=== PATIENT | male | born 1995 | race Caucasian/White ===

== ENCOUNTER 2019-11-01 12:11 | Emergency (ER) | payer OTHER, SELFPAY ==
[2019-11-01 12:15] VITALS: BP 140/82; PULSE 77; RESP 12; TEMP 36.7; O2SAT 98
--- NOTE | 2019-11-01 12:39 | ED.SKABFB ---
HPI - Skin/Abscess/Foreign Bdy <MANPREET Gomez - Last Filed: 11/01/19 19:03> General Chief complaint: Skin/Abscess/Foreign Body Stated complaint: abscess on his nose is getting worse Time Seen by Provider: 11/01/19 12:26 History of Present Illness HPI narrative: 24 year old male with a history of Crohn's, presents emergency department for a ?abscess on his nose ?. Patient states he felt some nose irritation approximately 5 days ago, he thought it was a palpable but the redness and swelling continued to spread. He notes some purulent drainage from his nose occasionally. Patient states he has been taking Levaquin for a GI infection, he states he has 4 days left of this medication. He denies any other symptoms such as fevers, chills, nausea, vomiting, diarrhea, chest pain, shortness of breath, or any other concerns. Related Data Home Medications Medication Instructions Recorded Confirmed oxycodone-acetaminophen [Percocet] 2 tab PO Q4HP PRN #0 07/05/17 sulfamethoxazole-trimethoprim 1 tab PO BID #0 07/05/17 Previous Rx's Medication Instructions Recorded sulfamethoxazole-trimethoprim 1 tab PO BID 7 Days #0 tab 09/05/17 doxycycline hyclate 100 mg PO BID 7 Days #14 cap 11/01/19 Review of Systems <MANPREET Gomez - Last Filed: 11/01/19 19:03> Review of Systems Narrative: REVIEW OF SYSTEMS: GENERAL: Denies fever or chills. HENT: Denies head trauma. Reports nose redness and swelling, see HPI. CARDIOVASCULAR: Denies syncope. MUSCULOSKELETAL: Denies weakness, or deformities. INTEGUMENTARY: Complains of nose abscess, see HPI. NEURO: Denies numbness or tingling. Patient History <MANPREET Gomez - Last Filed: 11/01/19 19:03> Medical History Crohn's disease (Acute) Social History Smoking Status: Never smoker Smoking Status: Never smoker Exam <MANPREET Gomez - Last Filed: 11/01/19 19:03> Initial Vital Signs Initial Vital Signs: Vital Signs Temperature 98.1 F 11/01/19 12:15 Pulse Rate 77 11/01/19 12:15 Respiratory Rate 12 11/01/19 12:15 Blood Pressure 140/82 11/01/19 12:15 Pulse Oximetry 98 11/01/19 12:15 PHYSICAL EXAMINATION: GENERAL: Well groomed, alert, and cooperative. Answers questions promptly and appropriately. Vital signs noted. HENT: Normocephalic, atraumatic. There is a 2 cm x 3 cm area of erythema noted to left side of tip of nose which extends into the distal aspect of left Nare. A minute amount of purulent discharge, less than 1 mm expressed from the lateral internal aspect of left nare which correlates with external erythema and tenderness. No fluctuation. RESPIRATORY: Normal respiratory rate, trachea midline, airway patent. No stridor, nasal flaring or accessory muscle use. MUSCULOSKELETAL: Normal gait and coordination. Equal tone and mass bilaterally. EXTREMITIES: CMS intact. Moves all extremities. SKIN: Warm, dry, soft, appropriate color for ethnicity. NEURO: Alert and Oriented X 3. Good coordination. PSYCH: Appropriate affect and mood. <Shar Martínez DO - Last Filed: 11/02/19 07:08> Initial Vital Signs Initial Vital Signs: Vital Signs Temperature 98.1 F 11/01/19 12:15 Pulse Rate 77 11/01/19 12:15 Respiratory Rate 12 11/01/19 12:15 Blood Pressure 140/82 11/01/19 12:15 Pulse Oximetry 98 11/01/19 12:15 Course <MANPREET Gomez - Last Filed: 11/01/19 19:03> Course Course Narrative: Culture was obtained and sent to lab. Orders Ordered: ED Orders 11/01/19 12:37 Wound Culture and Gram Stain Stat Vital Signs Vital signs: Vital Signs - 8 hr 11/01/19 12:15 Temperature 98.1 F Pulse Rate 77 Respiratory Rate 12 Blood Pressure 140/82 Pulse Oximetry 98 <Shar Martínez DO - Last Filed: 11/02/19 07:08> Orders Ordered: ED Orders 11/01/19 12:37 Wound Culture and Gram Stain Stat Vital Signs Vital signs: Vital Signs - 8 hr 11/01/19 12:15 Temperature 98.1 F Pulse Rate 77 Respiratory Rate 12 Blood Pressure 140/82 Pulse Oximetry 98 MDM - Skin/Abscess/Foreign Bdy <Narcisa HutchisonMANPREET - Last Filed: 11/01/19 19:03> Medical Records Attestation: I reviewed the patient's medical records. Lab Data Attestation: I reviewed the patient's lab results. [facility] Narrative Medical decision making narrative: 24-year-old male presents emergency department for redness and an abscess on the tip of left nose. A small amount of purulent drainage noted from his wound, surrounding erythema to tip of nose suggesting cellulitis as well as abscess. Suspect abscess is very small as only a small amount of purulent fluid was expressed, no fluctuation noted, patient reports wound has been draining. 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 I discussed this with patient and he was put on doxycycline for MRSA coverage and due to suspicion of surrounding cellulitis. No suspicion for sepsis due to lack of systemic symptoms such as fever or tachycardia. Return precautions given for new or worsening symptoms. Patient agrees to plan of care verbalized understanding. Discharge Plan Departure Patient Disposition: Home Clinical Impression: Nasal abscess Discharge Date/Time: 11/01/19 13:00 Instructions: DI for Skin Abscess Activity Restrictions/Additional Instructions: Thank you for entrusting me with your care today. As discussed, I have given you an antibiotic to help with infection in your nose. Please take this as directed. I recommend placing warm compresses on the area 3 times a day to help with drainage. Follow-up with your primary care provider in the next 1-2 weeks for further evaluation if symptoms continue. Return emergency department for any new or worsening symptoms such as increasing pain, increased redness, spreading of infection, fevers, or any other concerns. Prescriptions: New doxycycline hyclate 100 mg capsule 100 mg PO BID 7 Days Qty: 14 RF: 0 No Action sulfamethoxazole-trimethoprim 800 MG/160 MG tablet 1 tab PO BID Qty: 0 RF: 0 oxycodone-acetaminophen [Percocet] 5 MG/325 MG tablet 2 tab PO Q4HP PRNQty: 0 RF: 0 sulfamethoxazole-trimethoprim 800 MG/160 MG tablet 1 tab PO BID 7 Days Qty: 0 RF: 0 <Shar Martínez DO - Last Filed: 11/02/19 07:08> Cosign ED Attending Cosignature Attestation: Dr Martínez Co-Sign Statement: I was available for consultation during this patient's emergency department visit. This chart is signed by myself for administrative purposes only. I did not have direct contact with this patient during this visit. They were seen independently by the APC.
== END 2019-11-01 13:00 | disposition home or self-care (01) ==
PROVIDERS: Emergency Provider Nurse Practitioner
DX: J34.0 Abscess, furuncle and carbuncle of nose (principal)
CPT/HCPCS: 87070; 87075; 87077; 87147; 87186; 87205; 99281; 99282

== ENCOUNTER 2019-12-19 17:38 | Emergency (ER) | payer OTHER, SELFPAY ==
[2019-12-19 17:54] VITALS: BP 131/85; PULSE 89; RESP 16; TEMP 36.6; O2SAT 96; BMI 37.6
[2019-12-19 19:47] VITALS: BP 135/86; PULSE 71; RESP 19; O2SAT 98
--- NOTE | 2019-12-19 20:32 | ED.RECABL ---
HPI - Recheck/Abnormal Lab/Rx General Chief Complaint: Recheck/Abnormal Lab/Rx Stated Complaint: UNABLE TO REMOVE PERIANAL ABSCESS DRAINE Time Seen by Provider: 12/19/19 20:32 Source: patient Mode of arrival: Ambulatory Limitations: no limitations History of Present Illness HPI narrative: The patient has Crohn's disease, and a history of perianal abscess. He developed an abscess about 4 5 days ago. An I&D was done 2 days ago [facility]. He is here for wound check and to have the packing pulled. He denies fever or chills. There is no significant purulent or bloody discharge. He is not having significant pain. He has no abdominal discomfort Related Data Home Medications Medication Instructions Recorded Confirmed oxycodone-acetaminophen [Percocet] 2 tab PO Q4HP PRN #0 07/05/17 sulfamethoxazole-trimethoprim 1 tab PO BID #0 07/05/17 Previous Rx's Medication Instructions Recorded sulfamethoxazole-trimethoprim 1 tab PO BID 7 Days #0 tab 09/05/17 Allergies Allergy/AdvReac Type Severity Reaction Status Date / Time acetaminophen [From Vicodin] AdvReac Verified 12/19/19 18:03 hydrocodone [From Vicodin] AdvReac Verified 12/19/19 18:03 Review of Systems Review of Systems ROS Unobtainable: All systems reviewed & are unremarkable except as noted in HPI and below Constitutional Constitutional: Denies chills and Denies fever(s) Gastrointestinal Gastrointestinal: Denies abdominal pain, Denies hematochezia, Denies change in bowel habits, Denies diarrhea, Denies nausea and Denies vomiting Integumentary/Breasts Skin/Breast: Denies rash and Denies wounds Comments: See HPI regarding perianal abscess Patient History Medical History (Updated 12/19/19 @ 20:42 by Xu Christy MD) Crohn's disease (Acute) Social History Smoking Status: Never smoker Smoking Status: Never smoker tobacco type: vaping Substance Use Type: does not use Exam Initial Vital Signs Initial Vital Signs: Vital Signs Temperature 97.9 F 12/19/19 17:54 Pulse Rate 89 12/19/19 17:54 Respiratory Rate 16 12/19/19 17:54 Blood Pressure 131/85 12/19/19 17:54 Pulse Oximetry 96 12/19/19 17:54 GI Palpation: soft and No tender Other: Small healing incision in the perianal area, no packing is in place. There is no purulent discharge. There is minimal bleeding. The wound is healing , with no obvious infection. Course Vital Signs Vital signs: Vital Signs - 8 hr 12/19/19 17:54 12/19/19 19:47 Temperature 97.9 F Pulse Rate 89 71 Respiratory Rate 16 19 Blood Pressure 131/85 135/86 Pulse Oximetry 96 98 Discharge Plan Departure Patient Disposition: Home Clinical Impression: Wound check, abscess Instructions: DI for Anal Abscess Activity Restrictions/Additional Instructions: The area is healing well. I would recommend 2 times daily hot water soaking, sitting in a hot bath would be appropriate. Follow-up with your doctor in approximately 1 week for recheck. Prescriptions: No Action sulfamethoxazole-trimethoprim 800 MG/160 MG tablet 1 tab PO BID Qty: 0 RF: 0 oxycodone-acetaminophen [Percocet] 5 MG/325 MG tablet 2 tab PO Q4HP PRNQty: 0 RF: 0 sulfamethoxazole-trimethoprim 800 MG/160 MG tablet 1 tab PO BID 7 Days Qty: 0 RF: 0
== END 2019-12-19 20:46 | disposition home or self-care (01) ==
PROVIDERS: Emergency Provider Emergency Medicine
DX: Z48.00 Encounter for change or removal of nonsurgical wound dressing (principal); K61.0 Anal abscess
CPT/HCPCS: 99281

== ENCOUNTER 2020-04-04 10:15 | Emergency (ER) | payer OTHER, SELFPAY ==
[2020-04-04] VITALS (9 sets, daily range): BP systolic 107–127; BP diastolic 72–83; PULSE 67–79; RESP 14–18; TEMP 36.1; O2SAT 97–100; BMI 37.6
--- NOTE | 2020-04-04 10:29 | PC.NURSE ---
Addendum entered by Taylor Robb R.N. 04/04/20 10:30: Right AC Original Note: 1 unsuccessful IV attempt made
--- NOTE | 2020-04-04 10:38 | PC.NURSE ---
pt has hx of Crohn's disease
--- NOTE | 2020-04-04 10:39 | ED_ITS ---
HPI - General Adult General Chief complaint: Abdominal Pain Stated complaint: Lower right and Central stomach pain Time Seen by Provider: 04/04/20 10:16 Source: patient Mode of arrival: Ambulatory Limitations: no limitations History of Present Illness HPI narrative: Patient is a 25-year-old male with a history of Crohn's disease here for evaluation of periumbilical right lower quadrant abdominal pain. Patient states that his symptoms started approximately 5 days ago. Shortly after the onset he went to [facility] for evaluation of the pain. He states he went to this facility because this is where his GI doctor is located. He states that he had a CT scan performed at the time which showed ?an enlarged appendix? this was not immediately available for my review. He stated that the decision was to place him on oral antibiotics and not perform surgery given the fact that he is on his immunosuppression medicine because of the Crohn's disease. He was placed on levofloxacin and Flagyl. He has been taking these as directed. He states that his pain has not improved and actually has worsened over the past 12 hours. No vomiting. Came to the emergency department for evaluation Related Data Home Medications Medication Instructions Recorded Confirmed oxycodone-acetaminophen [Percocet] 2 tab PO Q4HP PRN #0 07/05/17 Previous Rx's Medication Instructions Recorded sulfamethoxazole-trimethoprim 1 tab PO BID 7 Days #0 tab 09/05/17 hydrocodone-acetaminophen [[place]] 1 tab PO Q4-6H PRN #7 tab 04/04/20 prednisone 20 mg PO DAILY #26 tab 04/04/20 Allergies Allergy/AdvReac Type Severity Reaction Status Date / Time hydrocodone [From Vicodin] AdvReac Intermediate Verified 04/04/20 10:21 Review of Systems Constitutional Constitutional: Denies chills, Denies fatigue and Denies fever(s) Cardiovascular Cardiovascular: Denies chest pain and Denies dyspnea Respiratory Respiratory: Denies dyspnea Gastrointestinal Gastrointestinal: Reports abdominal pain, Reports constipation, Denies nausea and Denies vomiting Genitourinary Genitourinary: Reports dysuria Genitourinary: Reports dysuria Musculoskeletal Musculoskeletal: Denies arthralgias and Denies myalgias Integumentary/Breasts Skin/Breast: Denies lesions and Denies rash Neurologic Neurologic: Denies behavioral changes Psychiatric Psychiatric: Denies behavioral changes Endocrine Endocrine: Denies fatigue Hematologic/Lymphatic Hematologic/Lymphatic: Denies easy bleeding and Denies easy bruising Allergic/Immunologic Allergic/Immunologic: Denies urticaria Patient History Medical History Crohn's disease (Acute) Social History Smoking Status: Never smoker Smoking Status: Never smoker tobacco type: vaping Substance Use Type: does not use Exam Initial Vital Signs Initial Vital Signs: Vital Signs Temperature 97.0 F L 04/04/20 10:17 Pulse Rate 79 04/04/20 10:17 Respiratory Rate 14 04/04/20 10:17 Blood Pressure 123/83 04/04/20 10:17 Pulse Oximetry 99 04/04/20 10:17 Const General: cooperative and comfortable Limitations: mental status not altered HENMT Head: normal to inspection and normocephalic Resp Effort & Inspection: normal respiratory effort Auscultation: clear to auscultation bilaterally Cardio Rate: regular rate Rhythm: regular rhythm GI Inspection: non-distended Palpation: soft, No firm and tender (Right lower quadrant regarding) Skin Lesions: no lesions Rashes: no rashes Neuro General: patient alert and patient awake Cognition: normal cognition Speech: speech normal Extrem General: normal to inspection and capillary refill normal Psych Appearance: grossly normal and well kempt Course Orders Ordered: ED Orders 04/04/20 10:28 Basic Metabolic Panel Stat Complete Blood Count AUTO DIFF Stat 04/04/20 10:40 CT abdomen pelvis w con Stat Discontinued Medications Acetaminophen (Tylenol) 650 mg PO NOW ONE Stop: 04/04/20 12:41 Last Admin: 04/04/20 12:45 Dose: 650 mg Documented by: KBROTEM Hydromorphone HCl (Dilaudid) 1 mg IV NOW ONE Stop: 04/04/20 11:45 Last Admin: 04/04/20 11:48 Dose: 1 mg Documented by: MMINOR Sodium Chloride (Normal Saline 0.9%) 1,000 mls @ 1,000 mls/hr IV BOLUS ONE Stop: 04/04/20 11:38 Last Infusion: 04/04/20 12:04 Dose: 0 mls/hr Documented by: Admin: 04/04/20 10:47 Dose: 1,000 mls/hr Documented by: MMINOR Morphine Sulfate (Morphine) 4 mg IV NOW ONE Stop: 04/04/20 10:40 Last Admin: 04/04/20 10:49 Dose: 4 mg Documented by: ANTHONY Vital Signs Vital signs: Vital Signs - 8 hr 04/04/20 10:17 04/04/20 10:55 04/04/20 11:00 Temperature 97.0 F L Pulse Rate 79 72 70 Respiratory Rate 14 Blood Pressure 123/83 118/74 118/73 Pulse Oximetry 99 97 98 04/04/20 11:30 04/04/20 12:02 04/04/20 12:03 Temperature Pulse Rate 71 77 75 Respiratory Rate 18 Blood Pressure 121/81 127/78 Pulse Oximetry 100 99 100 04/04/20 12:30 04/04/20 13:00 Temperature Pulse Rate 76 73 Respiratory Rate Blood Pressure 116/72 107/76 Pulse Oximetry 100 98 Medical Decision Making Lab Data Lab results reviewed: Yes I reviewed the patient's lab results. Result diagrams: 04/04/20 10:28 04/04/20 10:28 Labs: Lab Results 04/04/20 04/04/20 Range/Units 10:28 10:28 WBC 7.8 (4.5-11.0) X10^3/uL RBC 5.52 (4.5-5.9) X10^6/uL Hgb 18.3 H (13.5-17.5) g/dL Hct 52.4 (41-53) % MCV 94.9 (80-100) fL MCH 33.2 (26-34) PG MCHC 35.0 (30-36) % RDW 14.2 (11.6-14.8) % Plt Count 189 (150-400) X10^3/uL Neut % (Auto) 74.3 (50-75) % Lymph % (Auto) 18.9 L (25-40) % [place] % (Auto) 5.7 (3-14) % Eos % (Auto) 0.8 L (2-4) % Baso % (Auto) 0.3 (0-2) % Neut # (Auto) 5800 (9583-4069) /uL Lymph # (Auto) 1500 (1880-8259) /uL [place] # (Auto) 400 (0-900) /uL Eos # (Auto) 100 (0-450) /uL Baso # (Auto) 0 (0-100) /uL Sodium 141 (137-145) mmol/L Potassium 4.3 (3.4-5.1) mmol/L Chloride 105 (98-107) mmol/L Carbon Dioxide 30 (22-32) mmol/L BUN 18 (9-20) mg/dL Creatinine 1.05 (0.66-1.25) mg/dL Estimated GFR > 60.0 (>60) mL/min BUN/Creatinine Ratio 17.1 (6-22) Glucose 95 (70-100) mg/dL Calcium 9.5 (8.4-10.2) mg/dL Urine Dip Bedside Urine Glucose Negative Bedside Urine Bilirubin - Negative Bedside Urine Ketone - Negative Urine Specific [place] 1.025 Bedside Urine Occult Blood - Negative Bedside Urine pH 6.5 Bedside Urine Protein - Negative Bedside Urine Urobilinogen - Negative Bedside Urine Nitrite - Negative Bedside Urine Leukocytes - Negative Esterase Point of care testing: Urine Dip Bedside Urine Glucose Negative Bedside Urine Bilirubin - Negative Bedside Urine Ketone - Negative Urine Specific [place] 1.025 Bedside Urine Occult Blood - Negative Bedside Urine pH 6.5 Bedside Urine Protein - Negative Bedside Urine Urobilinogen - Negative Bedside Urine Nitrite - Negative Bedside Urine Leukocytes - Negative Esterase Imaging Data CT scan - abdomen/pelvis: Radiologist's Impression: [place] [address] CT Scan Report Signed Patient: Oz Rivera [facility]#: [id number] : 1995Acct:[id number] Age/Sex: 25 / MDate of Service: 04/04/20 Loc: ED Accession Number: [id number] Procedure: CT abdomen pelvis w con Ordering Provider: Shar Martínez D.O. PROCEDURE: CT ABDOMEN PELVIS W CON INDICATIONS: RLQ pain history of Crohn's TECHNIQUE: After the administration of intravenous contrast, 5 mm thick sections acquired from the diaphragm to the symphysis. 5 mm coronal and sagittal reformats were acquired. For radiation dose reduction, the following was used: automated exposure control, adjustment of mA and/or kV according to patient size. COMPARISON: None. FINDINGS: Image quality: Excellent. ABDOMEN: Lung bases: Lung bases are clear. Heart size is normal. Solid organs: Liver is normal in size and enhancement. Gallbladder is distended and shows no gross abnormality. Biliary system is non dilated. Pancreas enhances normally. Spleen is normal in size and enhancement. No adrenal nodules. Kidneys demonstrate normal size and enhancement, without hydronephrosis. Peritoneum and bowel: The is no evidence of bowel obstruction. No gross gastric or small bowel wall thickening. There is suggestion of mild wall thickening involving distal descending colon and sigmoid colon and mild pericolonic fat stranding concerning for infectious inflammatory colitis. Appendix is visualized in right lower quadrant and is within normal limits. No abscess collection. No free fluid or free air. Nodes and vessels: No retroperitoneal or mesenteric adenopathy by size cri teria. Aorta and inferior vena cava are normal in size. Miscellaneous: No ventral hernias. PELVIS: Genitourinary: Bladder wall thickness is normal. Miscellaneous: No inguinal hernias or adenopathy. Bones: No suspicious bony lesions. No vertebral body compression fractures. IMPRESSION: 1. Mild distal descending colon and sigmoid colon wall thickening and edema with mild pericolonic fat stranding concerning for infectious or inflammatory colitis. No abscess collection is seen. 2. Normal appendix. No bowel obstruction. No free fluid or free air. Dictated by: Cesario Faustin M.D. on 04/04/2020 at 11:19 Approved by: Cesario Faustin M.D. on 04/04/2020 at 11:21 [facility] Narrative Medical decision making narrative: Patient is afebrile. Does not have a leukocytosis. CT scan in this emergency department shows a descending and sigmoid colon wall thickening without signs of abscess. He has a normal tennille endix on the CT scan. Is currently on Cipro and Flagyl. I did discuss the case with the patient's GI doctor who is Dr. Benson at [facility] who stated that the patient has been having abdominal pain recently. Appears that he has been presenting a different emergency departments and having relatively unremarkable workups. He recommended starting the patient on prednisone. Also recommending the patient following up with his office. I discussed all this with the patient. He expressed understanding and agreement. Discharge Plan Departure Patient Disposition: Home Clinical Impression: Colitis Instructions: DI for Colitis Activity Restrictions/Additional Instructions: I did discuss your case today with your GI provider at [facility]. He and I both recommend that you continue with the antibiotics (Levaquin/levofloxacin and Flagyl/metronidazole) until these antibiotics are done. He also recommend starting you on prednisone. You were given a prescription for this. He also would like you to contact his office for follow-up. Return to emergency department for any new or worsening symptoms Prescriptions: New hydrocodone-acetaminophen [[place]] 5-325 mg tablet 1 tab PO Q4-6H PRN (Reason: pain) Qty: 7 RF: 0 prednisone 20 mg tablet 20 mg PO DAILY Qty: 26 RF: 0 No Action oxycodone-acetaminophen [Percocet] 5 MG/325 MG tablet 2 tab PO Q4HP PRNQty: 0 RF: 0 sulfamethoxazole-trimethoprim 800 MG/160 MG tablet 1 tab PO BID 7 Days Qty: 0 RF: 0
[2020-04-04] MEDS: SODIUM CHLORIDE 0.9% 1,000 ML 1000 ML IV (10:47)
[2020-04-04 10:49] LABS: Add Manual Diff / Slide Review NO; Basophils Absolute Auto 0 /uL (0-100); Basophils Percent Auto 0.3 % (0-2); Eosinophils Absolute Auto 100 /uL (0-450); Eosinophils Percent Auto 0.8 % (2-4); Hematocrit 52.4 % (41-53); Hemoglobin 18.3 g/dL (13.5-17.5); Lymphocytes Absolute Auto 1500 /uL (1100-4500); Lymphocytes Percent Auto 18.9 % (25-40); Mean Corpuscular Hemoglobin 33.2 PG (26-34); Mean Corpuscular Volume 94.9 fL (80-100); Monocytes Absolute Auto 400 /uL (0-900); Monocytes Percent Auto 5.7 % (3-14); Neutrophils Absolute Auto 5800 /uL (1500-7000); Neutrophils Percent Auto 74.3 % (50-75); Platelet Count 189 X10^3/uL (150-400); Red Blood Cell Count 5.52 X10^6/uL (4.5-5.9); Red Cell Distribution Width 14.2 % (11.6-14.8); White Blood Cell Count 7.8 X10^3/uL (4.5-11.0)
[2020-04-04] MEDS: MORPHINE 4 MG/ML INJ IV (10:49)
[2020-04-04 10:53] LABS: BUN Creatinine Ratio 17.1 (6-22); Blood Urea Nitrogen 18 mg/dL (9-20); Calcium 9.5 mg/dL (8.4-10.2); Carbon Dioxide 30 mmol/L (22-32); Chloride 105 mmol/L (98-107); Estimated Glomerular Filt Rate > 60.0 mL/min (>60); Glucose 95 mg/dL (70-100); HEMOLYSIS 40 (0-50); Potassium 4.3 mmol/L (3.4-5.1); Sodium 141 mmol/L (137-145)
[2020-04-04] MEDS: HYDROMORPHONE 1 MG INJ IV (11:48)
[2020-04-04] MEDS: ACETAMINOPHEN 325 MG TABLET 650 MG PO (12:45)
[2020-04-04] MEDS: HYDROMORPHONE 0.5 MG INJ IV (13:37)
== END 2020-04-04 13:57 | disposition home or self-care (01) ==
PROVIDERS: Emergency Provider Emergency Medicine; Referring Provider Emergency Medicine
DX: K52.9 Noninfective gastroenteritis and colitis, unspecified (principal)
CPT/HCPCS: 36415; 74177; 80048; 81003; 85025; 96361; 96374; 96375; 96376; 99284; J1170; J2270; Q9967

== ENCOUNTER 2020-07-04 12:56 | Emergency (ER) | payer OTHER, SELFPAY ==
[2020-07-04 13:04] VITALS: BP 155/77; PULSE 97; RESP 22; TEMP 36.8; O2SAT 97
--- NOTE | 2020-07-04 13:04 | DI.CT.S_ITS ---
PROCEDURE: CT ABDOMEN PELVIS W CON INDICATIONS: Generalized abdominal pain TECHNIQUE: After the administration of intravenous contrast, 5 mm thick sections acquired from the diaphragm to the symphysis. 5 mm coronal and sagittal reformats were acquired. For radiation dose reduction, the following was used: automated exposure control, adjustment of mA and/or kV according to patient size. COMPARISON: [facility], CT, CT ABDOMEN PELVIS W CON, 04/04/2020, 11:48. FINDINGS: Image quality: Excellent. ABDOMEN: Lung bases: Lung bases are clear. Heart size is normal. Solid organs: Liver is normal in size and enhancement. Gallbladder is contracted, but within normal limits. Biliary system is non dilated. Pancreas enhances normally. Spleen is normal in size and enhancement. No adrenal nodules. Kidneys demonstrate normal size and enhancement, without hydronephrosis. Peritoneum and bowel: Bowel loops demonstrate normal caliber. Mild circumferential wall thickening involving the distal left colon and sigmoid colon which could be due to underdistention versus mild colitis. No free fluid or air. Appendix is normal. Nodes and vessels: No retroperitoneal or mesenteric adenopathy by size criteria. Aorta and inferior vena cava are normal in size. Miscellaneous: No ventral hernias. PELVIS: Genitourinary: Bladder wall thickness is normal. Miscellaneous: No inguinal hernias or adenopathy. Bones: No suspicious bony lesions. No vertebral body compression fractures. IMPRESSION: 1. Mild circumferential wall thickening involving the distal left colon and sigmoid colon which could be due to underdistention versus mild colitis. 2. No free fluid or free air. 3. No dilated loops of bowel. 4. Appendix is normal. Dictated by: Varsha Tasi MD, PhD on 07/04/2020 at 13:07 Approved by: Varsha Tsai MD, PhD on 07/04/2020 at 13:12
--- NOTE | 2020-07-04 13:08 | ED_ITS ---
HPI - General Adult General Chief complaint: Abdominal Pain Stated complaint: severe abd pain/hematuria/constipation x4 wks Time Seen by Provider: 07/04/20 13:03 Source: patient Mode of arrival: Ambulatory Limitations: no limitations History of Present Illness HPI narrative: Patient is a 25-year-old male. History of Crohn's disease. Is on Remicade. Sees a GI doctor at [facility]. Last colonoscopy was within the past 60 days. States he is here for abdominal pain, blood in his stool. States that he has not had a bowel movement in the past 48 hours (not 4 weeks as stated in the complaint) he was seen at an outside emergency department over the weekend for the same symptoms. He states that he had a CT scan performed and was told that it was unremarkable though his symptoms have worsened since then. He states he does not know if they talk with his GI provider that time. He was not placed on any prednisone. He has not had any fevers. He was told that he had some blood in his urine. Related Data Home Medications Medication Instructions Recorded Confirmed bupropion HCl 300 mg PO DAILY 07/04/20 07/04/20 dextroamphetamine-amphetamine 25 mg PO QAM 07/04/20 07/04/20 gabapentin 400 mg PO TID 07/04/20 07/04/20 lamotrigine 200 mg PO DAILY 07/04/20 07/04/20 oxycodone 5 mg PO Q6HR PRN 07/04/20 07/04/20 Previous Rx's Medication Instructions Recorded ondansetron 4 mg PO Q6H PRN #14 tab 07/04/20 Allergies Allergy/AdvReac Type Severity Reaction Status Date / Time hydrocodone [From Vicodin] AdvReac Intermediate Verified 07/04/20 13:51 Review of Systems Constitutional Constitutional: Denies fever(s) Cardiovascular Cardiovascular: Denies chest pain and Denies dyspnea Respiratory Respiratory: Denies dyspnea Gastrointestinal Gastrointestinal: Reports abdominal pain, Denies change in bowel habits, Reports nausea and Denies vomiting Genitourinary Genitourinary: Denies dysuria Genitourinary: Denies dysuria Musculoskeletal Musculoskeletal: Denies arthralgias and Denies myalgias Integumentary/Breasts Skin/Breast: Denies rash Neurologic Neurologic: Denies behavioral changes Psychiatric Psychiatric: Denies behavioral changes Hematologic/Lymphatic Hematologic/Lymphatic: Denies easy bleeding and Denies easy bruising Allergic/Immunologic Allergic/Immunologic: Denies urticaria Patient History Medical History (Updated 07/04/20 @ 16:17 by Shar Martínez DO) Crohn's disease Social History Smoking Status: Never smoker Smoking Status: Never smoker tobacco type: vaping Substance Use Type: does not use Exam Initial Vital Signs Initial Vital Signs: Vital Signs Temperature 98.3 F 07/04/20 13:04 Pulse Rate 97 H 07/04/20 13:04 Respiratory Rate 22 07/04/20 13:04 Blood Pressure 155/77 H 07/04/20 13:04 Pulse Oximetry 97 07/04/20 13:04 Const General: cooperative and comfortable Resp Effort & Inspection: normal respiratory effort Auscultation: clear to auscultation bilaterally Cardio Rate: regular rate Rhythm: regular rhythm GI Inspection: non-distended Palpation: soft and tender (Left-sided tenderness) Skin Lesions: no lesions Rashes: no rashes Neuro General: patient alert and patient awake Cognition: normal cognition Speech: speech normal Extrem General: capillary refill normal Psych Appearance: grossly normal and well kempt Course Orders Ordered: ED Orders 07/04/20 13:04 CT abdomen pelvis w con Stat 07/04/20 13:22 Complete Blood Count AUTO DIFF Stat Comprehensive Metabolic Panel Stat Lipase Stat Discontinued Medications Sodium Chloride (Normal Saline 0.9%) 1,000 mls @ 1,000 mls/hr IV BOLUS ONE Stop: 07/04/20 14:03 Last Infusion: 07/04/20 14:48 Dose: 0 mls/hr Documented by: Admin: 07/04/20 13:23 Dose: 1,000 mls/hr Documented by: EUN Ketorolac Tromethamine (Ketorolac 60 Mg/2 Ml Vial) 30 mg IV NOW ONE Stop: 07/04/20 14:42 Last Admin: 07/04/20 15:03 Dose: 30 mg Documented by: EUN Ondansetron HCl (Ondansetron 4 Mg/2 Ml Inj) 4 mg IV NOW ONE Stop: 07/04/20 14:19 Last Admin: 07/04/20 14:20 Dose: 4 mg Documented by: EUN Vital Signs Vital signs: Vital Signs - 8 hr 07/04/20 13:04 07/04/20 14:48 Temperature 98.3 F Pulse Rate 97 H 70 Respiratory Rate 22 14 Blood Pressure 155/77 H 137/76 Pulse Oximetry 97 99 Medical Decision Making Lab Data Lab results reviewed: Yes I reviewed the patient's lab results. Result diagrams: 07/04/20 13:22 07/04/20 13:22 Labs: Lab Results 07/04/20 07/04/20 Range/Units 13:22 13:22 WBC 7.4 (4.5-11.0) X10^3/uL RBC 4.92 (4.5-5.9) X10^6/uL Hgb 15.9 (13.5-17.5) g/dL Hct 46.5 (41-53) % MCV 94.5 (80-100) fL MCH 32.4 (26-34) PG MCHC 34.2 (30-36) % RDW 12.6 (11.6-14.8) % Plt Count 177 (150-400) X10^3/uL Neut % (Auto) 71.6 (50-75) % Lymph % (Auto) 21.6 L (25-40) % [place] % (Auto) 5.5 (3-14) % Eos % (Auto) 0.6 L (2-4) % Baso % (Auto) 0.7 (0-2) % Neut # (Auto) 5300 (2740-9188) /uL Lymph # (Auto) 1600 (1451-3124) /uL [place] # (Auto) 400 (0-900) /uL Eos # (Auto) 0 (0-450) /uL Baso # (Auto) 0 (0-100) /uL Sodium 139 (137-145) mmol/L Potassium 3.9 (3.4-5.1) mmol/L Chloride 107 (98-107) mmol/L Carbon Dioxide 28 (22-32) mmol/L BUN 14 (9-20) mg/dL Creatinine 1.02 (0.66-1.25) mg/dL Estimated GFR > 60.0 (>60) mL/min BUN/Creatinine Ratio 13.7 (6-22) Glucose 114 H (70-100) mg/dL Calcium 9.2 (8.4-10.2) mg/dL Total Bilirubin 0.4 (0.2-1.3) mg/dL AST 28 (17-59) IU/L ALT 37 (<50) IU/L Alkaline Phosphatase 52 (38-126) U/L Total Protein 7.2 (6.3-8.2) g/dL Albumin 4.5 (3.5-5.0) g/dL Globulin 2.7 (1.7-4.1) g/dL Albumin/Globulin Ratio 1.7 (1.0-2.8) Lipase 41 (23-300) U/L Urine Dip Bedside Urine Glucose Negative Bedside Urine Bilirubin - Negative Bedside Urine Ketone - Negative Urine Specific [place] 1.01 Bedside Urine Occult Blood - Negative Bedside Urine pH 7.5 Bedside Urine Protein - Negative Bedside Urine Urobilinogen - Negative Bedside Urine Nitrite - Negative Bedside Urine Leukocytes - Negative Esterase Point of care testing: Urine Dip Bedside Urine Glucose Negative Bedside Urine Bilirubin - Negative Bedside Urine Ketone - Negative Urine Specific [place] 1.01 Bedside Urine Occult Blood - Negative Bedside Urine pH 7.5 Bedside Urine Protein - Negative Bedside Urine Urobilinogen - Negative Bedside Urine Nitrite - Negative Bedside Urine Leukocytes - Negative Esterase Imaging Data CT scan - abdomen/pelvis: Radiologist's Impression: [address] [id number] Scan ReportSigned Patient: Oz Rivera [facility]#: [id number]: 1995Acct:[id number]/Sex: 25 / MDate of Service: 07/04/20Loc: EDAccession Number: [id number] Procedure: CT abdomen pelvis w con Ordering Provider: Shar Martínez D.O. PROCEDURE: CT ABDOMEN PELVIS W CON INDICATIONS: Generalized abdominal pain TECHNIQUE: After the administration of intravenous contrast, 5 mm thick sections acquired from the diaphragm to the symphysis. 5 mm coronal and sagittal reformats were acquired. For radiation dose reduction, the following was used: automated exposure control, adjustment of mA and/or kV according to patient size. COMPARISON: [facility], CT, CT ABDOMEN PELVIS W CON, 04/04/2020, 11:48. FINDINGS: Image quality: Excellent. ABDOMEN: Lung bases: Lung bases are clear. Heart size is normal. Solid organs: Liver is normal in size and enhancement. Gallbladder is co ntracted, but within normal limits. Biliary system is non dilated. Pancreas enhances normally. Spleen is normal in size and enhancement. No adrenal nodules. Kidneys demonstrate normal size and enhancement, without hydronephrosis. Peritoneum and bowel: Bowel loops demonstrate normal caliber. Mild circumferential wall thickening involving the distal left colon and sigmoid colon which could be due to underdistention versus mild colitis. No free fluid or air. Appendix is normal. Nodes and vessels: No retroperitoneal or mesenteric adenopathy by size criteria. Aorta and inferior vena cava are normal in size. Miscellaneous: No ventral hernias. PELVIS: Genitourinary: Bladder wall thickness is normal. Miscellaneous: No inguinal hernias or adenopathy. Bones: No suspicious bony lesions. No vertebral body compression fractures. IMPRESSION: 1. Mild circumferential wall thickening involving the distal left colon and sigmoid colon which could be due to underdistention versus mild colitis. 2. No free fluid or free air. 3. No dilated loops of bowel. 4. Appendix is normal. Dictated by: Varsha Tsai MD, PhD on 07/04/2020 at 13:07 Approved by: Varsha Tsai MD, PhD on 07/04/2020 at 13:12 [facility] Narrative Medical decision making narrative: Patient has unremarkable labs. CT scan concerning for distal colitis. I did discuss the case with GI head region you edna who did not recommend changing any of his medications were starting him on steroids. He has a benign abdominal exam. No indication for surgical intervention. No indication for antibiotics. Will send with nausea medication. He was given return precautions. He expressed understanding and agreement. Discharge Plan Departure Patient Disposition: Home Clinical Impression: Colitis Instructions: DI for Colitis Activity Restrictions/Additional Instructions: Recommend continuing all of your medications as directed. Contact your primary provider and also your GI provider for a follow-up. Return to the emergency department for any new or worsening symptoms Prescriptions: New ondansetron 4 mg tablet,disintegrating 4 mg PO Q6H PRN (Reason: nausea and vomiting) Qty: 14 RF: 0 No Action lamotrigine 200 mg tablet 200 mg PO DAILY RF: 0 gabapentin 400 mg capsule 400 mg PO TID RF: 0 oxycodone 5 mg tablet 5 mg PO Q6HR PRN (Reason: Pain (Scale Score 7-10)) RF: 0 dextroamphetamine-amphetamine 25 mg capsule,extended release 24hr 25 mg PO QAM RF: 0 bupropion HCl 300 mg tablet extended release 24 hr 300 mg PO DAILY RF: 0
[2020-07-04] MEDS: SODIUM CHLORIDE 0.9% 1,000 ML 1000 ML IV (13:23)
[2020-07-04 13:28] LABS: Add Manual Diff / Slide Review NO; Basophils Absolute Auto 0 /uL (0-100); Basophils Percent Auto 0.7 % (0-2); Eosinophils Absolute Auto 0 /uL (0-450); Eosinophils Percent Auto 0.6 % (2-4); Hematocrit 46.5 % (41-53); Hemoglobin 15.9 g/dL (13.5-17.5); Lymphocytes Absolute Auto 1600 /uL (1100-4500); Lymphocytes Percent Auto 21.6 % (25-40); Mean Corpuscular HGB Conc 34.2 % (30-36); Mean Corpuscular Hemoglobin 32.4 PG (26-34); Mean Corpuscular Volume 94.5 fL (80-100); Monocytes Absolute Auto 400 /uL (0-900); Monocytes Percent Auto 5.5 % (3-14); Neutrophils Absolute Auto 5300 /uL (1500-7000); Neutrophils Percent Auto 71.6 % (50-75); Platelet Count 177 X10^3/uL (150-400); Red Blood Cell Count 4.92 X10^6/uL (4.5-5.9); Red Cell Distribution Width 12.6 % (11.6-14.8); White Blood Cell Count 7.4 X10^3/uL (4.5-11.0)
[2020-07-04 13:44] LABS: Alanine Aminotransferase 37 IU/L (<50); Albumin 4.5 g/dL (3.5-5.0); Albumin Globulin Ratio 1.7 (1.0-2.8); Alkaline Phosphatase 52 U/L (38-126); Aspartate Aminotransferase 28 IU/L (17-59); BUN Creatinine Ratio 13.7 (6-22); Bilirubin Total 0.4 mg/dL (0.2-1.3); Blood Urea Nitrogen 14 mg/dL (9-20); Calcium 9.2 mg/dL (8.4-10.2); Carbon Dioxide 28 mmol/L (22-32); Chloride 107 mmol/L (98-107); Estimated Glomerular Filt Rate > 60.0 mL/min (>60); Globulin 2.7 g/dL (1.7-4.1); Glucose 114 mg/dL (70-100); HEMOLYSIS 23 (0-50); Lipase 41 U/L (23-300); Potassium 3.9 mmol/L (3.4-5.1); Sodium 139 mmol/L (137-145); Total Protein 7.2 g/dL (6.3-8.2)
[2020-07-04] MEDS: ONDANSETRON 4 MG/2 ML INJ IV (14:20)
[2020-07-04 14:48] VITALS: BP 137/76; PULSE 70; RESP 14; O2SAT 99
[2020-07-04] MEDS: KETOROLAC 60 MG/2 ML VIAL 30 MG IV (15:03)
== END 2020-07-04 16:24 | disposition home or self-care (01) ==
PROVIDERS: Emergency Provider Emergency Medicine
DX: K52.9 Noninfective gastroenteritis and colitis, unspecified (principal); K92.1 Melena; Z87.19 Personal history of other diseases of the digestive system; R11.0 Nausea
CPT/HCPCS: 36415; 74177; 80053; 81003; 83690; 85025; 96361; 96374; 96375; 99283; 99284; J1885; J2405; Q9967

== ENCOUNTER 2020-07-24 01:50 | Emergency (ER) | payer OTHER, SELFPAY ==
[2020-07-24 02:02] VITALS: BP 164/91; PULSE 83; RESP 20; TEMP 36.6; O2SAT 98; BMI 36.3
[2020-07-24 02:17] LABS: RBC Urine None Seen (0-5/HPF); WBC Urine None Seen (0-5/HPF)
[2020-07-24 02:19] LABS: Appearance Urine UA CLOUDY; Bilirubin Urine UA NEGATIVE (NEGATIVE); Color Urine UA YELLOW; Glucose Urine UA NEGATIVE (Negative); Ketones Urine UA NEGATIVE (NEGATIVE); Leukocyte Esterase Urine UA NEGATIVE (NEGATIVE); Nitrite Urine UA NEGATIVE (Negative); Occult Blood Urine UA TRACE-LYSED (Negative); Protein Urine UA NEGATIVE (Negative); Specific Gravity Urine UA 1.015 (1.000-1.035); Urobilinogen Urine UA 0.2 E.U./dL (0.2)
--- NOTE | 2020-07-24 02:22 | ED_ITS ---
HPI - General Adult General Chief complaint: Abdominal Pain Stated complaint: body aches, nausea headache sob chills Time Seen by Provider: 07/24/20 01:59 Source: patient Mode of arrival: Ambulatory History of Present Illness HPI narrative: 25-year-old gentleman with a history of Crohn's disease, currently on Remicade and followed by a GI at [facility] with recent CT scan June of 2020 and colonoscopy in April of 2021. He had been seen in June complaining of increasing abdominal pain and blood in his stools. He has noticed that that has continued and today is having significantly more bleeding and describes a purple color blood that he has never noticed before with his Crohn's disease. He describes overall aches and chills, dizziness when he stands up and general malaise. He denies specific fevers, cough, vomiting, headaches, rashes, arthralgias or skin changes. He denies any chest pain cough or dyspnea. Related Data Home Medications Medication Instructions Recorded Confirmed bupropion HCl 300 mg PO DAILY 07/04/20 07/04/20 dextroamphetamine-amphetamine 25 mg PO QAM 07/04/20 07/04/20 gabapentin 400 mg PO TID 07/04/20 07/04/20 lamotrigine 200 mg PO DAILY 07/04/20 07/04/20 oxycodone 5 mg PO Q6HR PRN 07/04/20 07/04/20 Previous Rx's Medication Instructions Recorded ondansetron 4 mg PO Q6H PRN #14 tab 07/04/20 oxycodone 5 mg PO Q6H PRN #14 tab 07/24/20 Allergies Allergy/AdvReac Type Severity Reaction Status Date / Time hydrocodone [From Vicodin] AdvReac Intermediate Verified 07/04/20 13:51 Review of Systems Review of Systems Narrative: Remainder of review of systems including constitutional, ENT, cardiovascular, respiratory, GI, , musculoskeletal, skin, neurologic and psychiatric systems reviewed and are unremarkable except as noted in HPI. Patient History Medical History (Updated 07/24/20 @ 04:40 by Verona Ochoa MD) ADHD Anxiety Crohn's disease Depression Social History Smoking Status: Never smoker Smoking Status: Never smoker tobacco type: vaping Substance Use Type: does not use Exam Narrative Exam Narrative: General: Healthy appearing, in no acute distress. Able to give a complete and coherent history. Well-nourished well-developed HEENT: Moist mucous membranes, normal sclera with reactive pupils, Neck: No JVD, supple Respiratory: Lungs are clear to auscultation, no wheezing no rales no rhonchi. Full and symmetrical air movement Cardiac: Regular rate and rhythm no murmurs no bruits Abdomen: Soft, mild diffuse tenderness without rebound or guarding, good bowel tones, no flank pain Skin: Warm and dry, no rashes Neurologic: Grossly neurologically intact with no obvious asymmetries or abnormalities Extremities: No trauma, well perfused Psych: Cooperative, appropriate insight and affect Initial Vital Signs Initial Vital Signs: Vital Signs Temperature 97.8 F 07/24/20 02:02 Pulse Rate 83 07/24/20 02:02 Respiratory Rate 20 07/24/20 02:02 Blood Pressure 164/91 H 07/24/20 02:02 Pulse Oximetry 98 07/24/20 02:02 Course Orders Ordered: ED Orders 07/24/20 02:10 Urinalysis and Microscopic Stat 07/24/20 02:14 EKG-12 Lead Stat 07/24/20 02:30 C-Reactive Protein Quant Stat Complete Blood Count AUTO DIFF Stat Comprehensive Metabolic Panel Stat Erythrocyte Sedimentation Rate Stat Lipase Stat Partial Thromboplastin Time Stat Prothrombin Time INR Stat Type and Screen Stat 07/24/20 02:35 COVID19 Stat Discontinued Medications Hydromorphone HCl (Hydromorphone 1 Mg Inj) 1 mg IV NOW ONE Stop: 07/24/20 02:22 Last Admin: 07/24/20 02:40 Dose: 1 mg Documented by: MAYI Sodium Chloride (Normal Saline 0.9%) 1,000 mls @ 1,000 mls/hr IV BOLUS ONE Stop: 07/24/20 03:20 Last Infusion: 07/24/20 04:35 Dose: 0 mls/hr Documented by: Admin: 07/24/20 02:40 Dose: 1,000 mls/hr Documented by: MAYI Vital Signs Vital signs: Vital Signs - 8 hr 07/24/20 02:02 07/24/20 05:22 Temperature 97.8 F 97.7 F Pulse Rate 83 80 Respiratory Rate 20 16 Blood Pressure 164/91 H 138/68 Pulse Oximetry 98 100 Medical Decision Making Medical Records Medical records reviewed: Yes I reviewed the patient's medical records. Lab Data Lab results reviewed: Yes I reviewed the patient's lab results. Result diagrams: 07/24/20 02:30 07/24/20 02:30 Labs: Lab Results 07/24/20 07/24/20 07/24/20 Range/Units 02:10 02:30 02:30 WBC 12.5 H (4.5-11.0) X10^3/uL RBC 5.10 (4.5-5.9) X10^6/uL Hgb 16.1 (13.5-17.5) g/dL Hct 47.9 (41-53) % MCV 93.9 (80-100) fL MCH 31.6 (26-34) PG MCHC 33.7 (30-36) % RDW 12.4 (11.6-14.8) % Plt Count 179 (150-400) X10^3/uL Neut % (Auto) 67.4 (50-75) % Lymph % (Auto) 23.9 L (25-40) % [place] % (Auto) 7.3 (3-14) % Eos % (Auto) 1.0 L (2-4) % Baso % (Auto) 0.4 (0-2) % Neut # (Auto) 8400 H (4558-5916) /uL Lymph # (Auto) 3000 (4284-1275) /uL [place] # (Auto) 900 (0-900) /uL Eos # (Auto) 100 (0-450) /uL Baso # (Auto) 100 (0-100) /uL ESR (0-15) MM/HR PT 13.3 H (10.1-12.7) SECONDS INR 1.2 (0.9-1.3) APTT 34 (26.4-36.2) SECONDS Sodium (137-145) mmol/L Potassium (3.4-5.1) mmol/L Chloride (98-107) mmol/L Carbon Dioxide (22-32) mmol/L BUN (9-20) mg/dL Creatinine (0.66-1.25) mg/dL Estimated GFR (>60) mL/min BUN/Creatinine Ratio (6-22) Glucose (70-100) mg/dL Calcium (8.4-10.2) mg/dL Total Bilirubin (0.2-1.3) mg/dL AST (17-59) IU/L ALT (<50) IU/L Alkaline Phosphatase (38-126) U/L C-Reactive Protein (<1.0) mg/dL Total Protein (6.3-8.2) g/dL Albumin (3.5-5.0) g/dL Globulin (1.7-4.1) g/dL Albumin/Globulin Ratio (1.0-2.8) Lipase (23-300) U/L Urine Color Yellow Urine Appearance Cloudy Urine pH 7.0 (4.5-8.0) Ur Specific [place] 1.015 (1.000-1.035) Urine Protein Negative (Negative) Urine Glucose (UA) Negative (Negative) g/dL Urine Ketones Negative (NEGATIVE) Urine Occult Blood Trace-lysed (Negative) Urine Nitrate Negative (Negative) Urine Bilirubin Negative (NEGATIVE) Urine Urobilinogen 0.2 (0.2) E.U./dL Ur Leukocyte Esterase Negative (NEGATIVE) Urine RBC None seen (0-5/HPF) Urine WBC None seen (0-5/HPF) Ur Squamous Epith Cells 0-1 /hpf (0-5/HPF) Amorphous Sediment 2+ Urine Bacteria Occasional (0-1) (None) Ur Culture Indicated? Cult not indicated SARS-CoV-2 (PCR) (Negative) Blood Type Antibody Screen 07/24/20 07/24/20 07/24/20 Range/Units 02:30 02:30 02:30 WBC (4.5-11.0) X10^3/uL RBC (4.5-5.9) X10^6/uL Hgb (13.5-17.5) g/dL Hct (41-53) % MCV (80-100) fL MCH (26-34) PG MCHC (30-36) % RDW (11.6-14.8) % Plt Count (150-400) X10^3/uL Neut % (Auto) (50-75) % Lymph % (Auto) (25-40) % [place] % (Auto) (3-14) % Eos % (Auto) (2-4) % Baso % (Auto) (0-2) % Neut # (Auto) (7118-1566) /uL Lymph # (Auto) (5128-4809) /uL [place] # (Auto) (0-900) /uL Eos # (Auto) (0-450) /uL Baso # (Auto) (0-100) /uL ESR 1 (0-15) MM/HR PT (10.1-12.7) SECONDS INR (0.9-1.3) APTT (26.4-36.2) SECONDS Sodium 140 (137-145) mmol/L Potassium 3.8 (3.4-5.1) mmol/L Chloride 108 H (98-107) mmol/L Carbon Dioxide 27 (22-32) mmol/L BUN 15 (9-20) mg/dL Creatinine 1.04 (0.66-1.25) mg/dL Estimated GFR > 60.0 (>60) mL/min BUN/Creatinine Ratio 14.4 (6-22) Glucose 96 (70-100) mg/dL Calcium 9.1 (8.4-10.2) mg/dL Total Bilirubin 0.4 (0.2-1.3) mg/dL AST 28 (17-59) IU/L ALT 24 (<50) IU/L Alkaline Phosphatase 61 (38-126) U/L C-Reactive Protein < 0.5 (<1.0) mg/dL Total Protein 7.4 (6.3-8.2) g/dL Albumin 4.5 (3.5-5.0) g/dL Globulin 2.9 (1.7-4.1) g/dL Albumin/Globulin Ratio 1.6 (1.0-2.8) Lipase 60 (23-300) U/L Urine Color Urine Appearance Urine pH (4.5-8.0) Ur Specific [place] (1.000-1.035) Urine Protein (Negative) Urine Glucose (UA) (Negative) g/dL Urine Ketones (NEGATIVE) Urine Occult Blood (Negative) Urine Nitrate (Negative) Urine Bilirubin (NEGATIVE) Urine Urobilinogen (0.2) E.U./dL Ur Leukocyte Esterase (NEGATIVE) Urine RBC (0-5/HPF) Urine WBC (0-5/HPF) Ur Squamous Epith Cells (0-5/HPF) Amorphous Sediment Urine Bacteria (None) Ur Culture Indicated? SARS-CoV-2 (PCR) (Negative) Blood Type Antibody Screen 07/24/20 07/24/20 Range/Units 02:30 02:35 WBC (4.5-11.0) X10^3/uL RBC (4.5-5.9) X10^6/uL Hgb (13.5-17.5) g/dL Hct (41-53) % MCV (80-100) fL MCH (26-34) PG MCHC (30-36) % RDW (11.6-14.8) % Plt Count (150-400) X10^3/uL Neut % (Auto) (50-75) % Lymph % (Auto) (25-40) % [place] % (Auto) (3-14) % Eos % (Auto) (2-4) % Baso % (Auto) (0-2) % Neut # (Auto) (0781-5439) /uL Lymph # (Auto) (9676-3835) /uL [place] # (Auto) (0-900) /uL Eos # (Auto) (0-450) /uL Baso # (Auto) (0-100) /uL ESR (0-15) MM/HR PT (10.1-12.7) SECONDS INR (0.9-1.3) APTT (26.4-36.2) SECONDS Sodium (137-145) mmol/L Potassium (3.4-5.1) mmol/L Chloride (98-107) mmol/L Carbon Dioxide (22-32) mmol/L BUN (9-20) mg/dL Creatinine (0.66-1.25) mg/dL Estimated GFR (>60) mL/min BUN/Creatinine Ratio (6-22) Glucose (70-100) mg/dL Calcium (8.4-10.2) mg/dL Total Bilirubin (0.2-1.3) mg/dL AST (17-59) IU/L ALT (<50) IU/L Alkaline Phosphatase (38-126) U/L C-Reactive Protein (<1.0) mg/dL Total Protein (6.3-8.2) g/dL Albumin (3.5-5.0) g/dL Globulin (1.7-4.1) g/dL Albumin/Globulin Ratio (1.0-2.8) Lipase (23-300) U/L Urine Color Urine Appearance Urine pH (4.5-8.0) Ur Specific [place] (1.000-1.035) Urine Protein (Negative) Urine Glucose (UA) (Negative) g/dL Urine Ketones (NEGATIVE) Urine Occult Blood (Negative) Urine Nitrate (Negative) Urine Bilirubin (NEGATIVE) Urine Urobilinogen (0.2) E.U./dL Ur Leukocyte Esterase (NEGATIVE) Urine RBC (0-5/HPF) Urine WBC (0-5/HPF) Ur Squamous Epith Cells (0-5/HPF) Amorphous Sediment Urine Bacteria (None) Ur Culture Indicated? SARS-CoV-2 (PCR) Negative (Negative) Blood Type O Positive Antibody Screen Negative Imaging Data CT scan - abdomen/pelvis: Radiologist's Impression: From Jul 04, 2020 FINDINGS: Image quality: Excellent. ABDOMEN: Lung bases: Lung bases are clear. Heart size is normal. Solid organs: Liver is normal in size and enhancement. Gallbladder is contracted, but within normal limits. Biliary system is non dilated. Pancreas enhances normally. Spleen is normal in size and enhancement. No adrenal nodules. Kidneys demonstrate normal size and enhancement, without hydronephrosis. Peritoneum and bowel: Bowel loops demonstrate normal caliber. Mild circumferential wall thickening involving the distal left colon and sigmoid colon which could be due to underdistention versus mild colitis. No free fluid or air. Appendix is normal. Nodes and vessels: No retroperitoneal or mesenteric adenopathy by size criteria. Aorta and inferior vena cava are normal in size. Miscellaneous: No ventral hernias. PELVIS: Genitourinary: Bladder wall thickness is normal. Miscellaneous: No inguinal hernias or adenopathy. Bones: No suspicious bony lesions. No vertebral body compression fractures. IMPRESSION: 1. Mild circumferential wall thickening involving the distal left colon and sigmoid colon which could be due to underdistention versus mild colitis. 2. No free fluid or free air. 3. No dilated loops of bowel. 4. Appendix is normal. Dictated by: Varsha Tsai MD, PhD on 07/04/2020 at 13:07 ECG Data Attestation: I personally reviewed and interpreted this ECG as follows: Interpretation: Sinus rhythm at a rate of 85 Normal intervals, normal axis No acute EKG changes MDM Narrative Medical decision making narrative: 25-year-old gentleman with a history of Crohn's disease currently on Remicade with increasing abdominal pain and blood in his stool. Slightly elevated white blood cell count but other inflammatory markers are not significnt increased. Care is reviewed with Dr. Ayala, bander and cellophaner machine helper on-call for his primary bander and cellophaner machine helper at [facility] Dr. Adrian Benson ([phone]). Given the fact that his labs are reassuring, not significantly anemic and patient appears nontoxic, he agrees that inpatient hospitalization is not required at this time and his recommendation was not to add any additional oral steroids at this time. Outpatient workup will be facilitated further tomorrow and someone from Dr. Benson's office will contact Oz. Dr. Ayala will pass on contact information and details discussed today. Additional workup to see if his disease is actually progressing or if he is developing antibodies or if Humira is for some other reason simply not effective for him as well as additional testing including CMV prior to starting oral steroids will likely be warranted. We did discuss the brief use of narcotics to help with acute pain and agreed that a short course to bridge care would be appropriate at this time. Oz is safe for home discharge. Discharge Plan Departure Patient Disposition: Home Clinical Impression: Crohn's disease Qualifiers: Gastrointestinal tract location: large intestine Digestive disease complication type: with rectal bleeding Qualified Code(s): K50.111 - Crohn's disease of large intestine with rectal bleeding Instructions: DI for Crohns Disease Flare Activity Restrictions/Additional Instructions: Thank you for coming in tonight Despite the rectal bleeding that your having and the pain that you are experiencing, your blood work was quite reassuring. You had are not acutely anemic (your body easily is keeping up with the amount of blood your currently losing) and your inflammatory markers are not significantly elevated. I spoken with , on-call for . In reviewing your recent CT scan, your current clinical presentation and lab work he agreed that home discharge with safe at this time. He did not suggest the addition of oral steroids tonight. He will let know that you were in the emergency department and are having increased bleeding and pain. Please discuss packed of phone call from their office to set up further outpatient follow-up to review your Humira and overall Treatment response. In the meantime, we did agree that a short course of narcotic pain medication to help with the increased abdominal pain would be appropriate. If you find that things are worsening please return to the emergency department Good luck with your newly anticipated baby girl! Prescriptions: New oxycodone 5 mg tablet 5 mg PO Q6H PRN (Reason: pain) Qty: 14 RF: 0 No Action lamotrigine 200 mg tablet 200 mg PO DAILY RF: 0 gabapentin 400 mg capsule 400 mg PO TID RF: 0 oxycodone 5 mg tablet 5 mg PO Q6HR PRN (Reason: Pain (Scale Score 7-10)) RF: 0 dextroamphetamine-amphetamine 25 mg capsule,extended release 24hr 25 mg PO QAM RF: 0 bupropion HCl 300 mg tablet extended release 24 hr 300 mg PO DAILY RF: 0 ondansetron 4 mg tablet,disintegrating 4 mg PO Q6H PRN (Reason: nausea and vomiting) Qty: 14 RF: 0
[2020-07-24 02:27] LABS: Amorphous Sediment Urine 2+; Bacteria Urine Occasional (0-1); Culture Indicated Urine Cult Not Indicated; Squamous Epithelial Cell Urine 0-1 /HPF (0-5/HPF)
[2020-07-24] MEDS: HYDROMORPHONE 1 MG INJ IV (02:40)
[2020-07-24] MEDS: SODIUM CHLORIDE 0.9% 1,000 ML 1000 ML IV (02:40)
[2020-07-24 02:45] LABS: Add Manual Diff / Slide Review NO; Basophils Absolute Auto 100 /uL (0-100); Basophils Percent Auto 0.4 % (0-2); Eosinophils Absolute Auto 100 /uL (0-450); Hematocrit 47.9 % (41-53); Hemoglobin 16.1 g/dL (13.5-17.5); Lymphocytes Absolute Auto 3000 /uL (1100-4500); Lymphocytes Percent Auto 23.9 % (25-40); Mean Corpuscular HGB Conc 33.7 % (30-36); Mean Corpuscular Hemoglobin 31.6 PG (26-34); Mean Corpuscular Volume 93.9 fL (80-100); Monocytes Absolute Auto 900 /uL (0-900); Monocytes Percent Auto 7.3 % (3-14); Neutrophils Absolute Auto 8400 /uL (1500-7000); Neutrophils Percent Auto 67.4 % (50-75); Platelet Count 179 X10^3/uL (150-400); Red Cell Distribution Width 12.4 % (11.6-14.8); White Blood Cell Count 12.5 X10^3/uL (4.5-11.0)
[2020-07-24 02:53] LABS: Alanine Aminotransferase 24 IU/L (<50); Albumin 4.5 g/dL (3.5-5.0); Albumin Globulin Ratio 1.6 (1.0-2.8); Alkaline Phosphatase 61 U/L (38-126); Aspartate Aminotransferase 28 IU/L (17-59); BUN Creatinine Ratio 14.4 (6-22); Bilirubin Total 0.4 mg/dL (0.2-1.3); Blood Urea Nitrogen 15 mg/dL (9-20); Calcium 9.1 mg/dL (8.4-10.2); Carbon Dioxide 27 mmol/L (22-32); Chloride 108 mmol/L (98-107); Estimated Glomerular Filt Rate > 60.0 mL/min (>60); Globulin 2.9 g/dL (1.7-4.1); Glucose 96 mg/dL (70-100); HEMOLYSIS 30 (0-50); Lipase 60 U/L (23-300); Potassium 3.8 mmol/L (3.4-5.1); Sodium 140 mmol/L (137-145); Total Protein 7.4 g/dL (6.3-8.2)
[2020-07-24 02:56] LABS: COVID19 -Nasal RAPID Negative (Negative)
[2020-07-24 02:57] LABS: C-Reactive Protein Quant < 0.5 mg/dL (<1.0)
[2020-07-24 03:04] LABS: INR 1.2 (0.9-1.3); Prothrombin Time 13.3 SECONDS (10.1-12.7)
[2020-07-24 03:07] LABS: PTT Partial Thromboplastin Tim 34 SECONDS (26.4-36.2)
[2020-07-24 03:20] LABS: Erythrocyte Sedimentation Rate 1 MM/HR (0-15)
[2020-07-24 05:22] VITALS: BP 138/68; PULSE 80; RESP 16; TEMP 36.5; O2SAT 100
== END 2020-07-24 05:24 | disposition home or self-care (01) ==
PROVIDERS: Emergency Provider Emergency Medicine
DX: K50.111 Crohn's disease of large intestine with rectal bleeding (principal); Z20.822 Contact with and (suspected) exposure to COVID-19
CPT/HCPCS: 36415; 80053; 81001; 83690; 85025; 85610; 85651; 85730; 86140; 86850; 86900; 86901; 87635; 93005; 93010; 96361; 96374; 99282; 99284; C9803; J1170

== ENCOUNTER 2020-08-03 22:04 | Emergency (ER) | payer OTHER, SELFPAY ==
[2020-08-03 22:08] VITALS: BP 159/92; PULSE 81; RESP 16; TEMP 36.6; O2SAT 98; BMI 36.2
[2020-08-03 22:22] LABS: Add Manual Diff / Slide Review NO; Basophils Absolute Auto 100 /uL (0-100); Basophils Percent Auto 0.8 % (0-2); Eosinophils Absolute Auto 100 /uL (0-450); Eosinophils Percent Auto 1.2 % (2-4); Hematocrit 49.3 % (41-53); Hemoglobin 17.2 g/dL (13.5-17.5); Lymphocytes Absolute Auto 2900 /uL (1100-4500); Lymphocytes Percent Auto 30.1 % (25-40); Mean Corpuscular HGB Conc 34.9 % (30-36); Mean Corpuscular Hemoglobin 32.4 PG (26-34); Monocytes Absolute Auto 700 /uL (0-900); Monocytes Percent Auto 7.1 % (3-14); Neutrophils Absolute Auto 5900 /uL (1500-7000); Neutrophils Percent Auto 60.8 % (50-75); Platelet Count 176 X10^3/uL (150-400); Red Blood Cell Count 5.29 X10^6/uL (4.5-5.9); Red Cell Distribution Width 12.5 % (11.6-14.8); White Blood Cell Count 9.7 X10^3/uL (4.5-11.0)
[2020-08-03 22:31] LABS: PTT Partial Thromboplastin Tim 32 SECONDS (26.4-36.2)
[2020-08-03 22:33] LABS: Alanine Aminotransferase 31 IU/L (<50); Albumin 4.6 g/dL (3.5-5.0); Albumin Globulin Ratio 1.4 (1.0-2.8); Alkaline Phosphatase 78 U/L (38-126); Aspartate Aminotransferase 30 IU/L (17-59); BUN Creatinine Ratio 14.8 (6-22); Bilirubin Total 0.3 mg/dL (0.2-1.3); Blood Urea Nitrogen 17 mg/dL (9-20); Calcium 9.6 mg/dL (8.4-10.2); Carbon Dioxide 32 mmol/L (22-32); Chloride 105 mmol/L (98-107); Estimated Glomerular Filt Rate > 60.0 mL/min (>60); Globulin 3.2 g/dL (1.7-4.1); Glucose 97 mg/dL (70-100); HEMOLYSIS 33 (0-50); Lipase 124 U/L (23-300); Potassium 4.3 mmol/L (3.4-5.1); Sodium 141 mmol/L (137-145); Total Protein 7.8 g/dL (6.3-8.2)
--- NOTE | 2020-08-03 22:42 | ED_ITS ---
HPI - General Adult General Chief complaint: Abdominal Pain Stated complaint: CHRONS FLARE UP Time Seen by Provider: 08/03/20 22:18 Source: patient Mode of arrival: Ambulatory Limitations: no limitations History of Present Illness HPI narrative: Patient is a 25-year-old male with a known history of Crohn's disease. He is currently on Remicade. Has been seen here in the emergency department multiple times for he states is a Crohn's flare. He comes the emergency department today stating that he now has diarrhea. Has generalized abdominal pain. No vomiting. No fevers. He is requesting a CT scan. He states that he has not seen his GI doctor since he has been seen here in the emergency department multiple times but has an appointment scheduled at the beginning of September. Related Data Home Medications Medication Instructions Recorded Confirmed bupropion HCl 300 mg PO DAILY 07/04/20 07/04/20 dextroamphetamine-amphetamine 25 mg PO QAM 07/04/20 07/04/20 gabapentin 400 mg PO TID 07/04/20 07/04/20 lamotrigine 200 mg PO DAILY 07/04/20 07/04/20 oxycodone 5 mg PO Q6HR PRN 07/04/20 07/04/20 Previous Rx's Medication Instructions Recorded ondansetron 4 mg PO Q6H PRN #14 tab 07/04/20 oxycodone 5 mg PO Q6H PRN #14 tab 07/24/20 Allergies Allergy/AdvReac Type Severity Reaction Status Date / Time hydrocodone [From Vicodin] AdvReac Intermediate Verified 08/03/20 22:11 Review of Systems Constitutional Constitutional: Denies fever(s) Cardiovascular Cardiovascular: Denies chest pain and Denies dyspnea Respiratory Respiratory: Denies dyspnea Gastrointestinal Gastrointestinal: Reports abdominal pain, Reports hematochezia, Reports diarrhea and Denies vomiting Genitourinary Genitourinary: Denies dysuria Genitourinary: Denies dysuria Musculoskeletal Musculoskeletal: Denies arthralgias and Denies myalgias Integumentary/Breasts Skin/Breast: Denies lesions and Denies rash Neurologic Neurologic: Denies behavioral changes Psychiatric Psychiatric: Denies behavioral changes Hematologic/Lymphatic On Anticoagulants: No Allergic/Immunologic Allergic/Immunologic: Denies urticaria Patient History Medical History ADHD Anxiety Crohn's disease Depression Social History Smoking Status: Never smoker Smoking Status: Never smoker tobacco type: vaping Substance Use Type: does not use Exam Initial Vital Signs Initial Vital Signs: Vital Signs Temperature 97.8 F 08/03/20 22:08 Pulse Rate 81 08/03/20 22:08 Respiratory Rate 16 08/03/20 22:08 Blood Pressure 159/92 H 08/03/20 22:08 Pulse Oximetry 98 08/03/20 22:08 Const General: cooperative Limitations: mental status not altered HENPA Head: normal to inspection and normocephalic Resp Effort & Inspection: normal respiratory effort Auscultation: clear to auscultation bilaterally Cardio Rate: regular rate Rhythm: regular rhythm GI Inspection: non-distended Palpation: soft and tender (Generalized) Skin Lesions: no lesions Rashes: no rashes Neuro General: patient alert and patient awake Cognition: normal cognition Speech: speech normal Extrem General: capillary refill normal Psych Appearance: well kempt Course Orders Ordered: ED Orders 08/03/20 22:15 Complete Blood Count AUTO DIFF Stat Comprehensive Metabolic Panel Stat Lipase Stat Partial Thromboplastin Time Stat Prothrombin Time INR Stat 08/03/20 22:43 CT abdomen pelvis w con Stat Sodium Chloride (Normal Saline 0.9%) 1,000 mls @ 1,000 mls/hr IV BOLUS ONE Stop: 08/03/20 23:42 Last Admin: 08/03/20 22:46 Dose: 1,000 mls/hr Documented by: KGALLAG Vital Signs Vital signs: Vital Signs - 8 hr 08/03/20 22:08 Temperature 97.8 F Pulse Rate 81 Respiratory Rate 16 Blood Pressure 159/92 H Pulse Oximetry 98 Medical Decision Making Lab Data Lab results reviewed: Yes I reviewed the patient's lab results. Result diagrams: 08/03/20 22:15 08/03/20 22:15 Labs: Lab Results 08/03/20 08/03/20 08/03/20 Range/Units 22:15 22:15 22:15 WBC 9.7 (4.5-11.0) X10^3/uL RBC 5.29 (4.5-5.9) X10^6/uL Hgb 17.2 (13.5-17.5) g/dL Hct 49.3 (41-53) % MCV 93.0 (80-100) fL MCH 32.4 (26-34) PG MCHC 34.9 (30-36) % RDW 12.5 (11.6-14.8) % Plt Count 176 (150-400) X10^3/uL Neut % (Auto) 60.8 (50-75) % Lymph % (Auto) 30.1 (25-40) % [place] % (Auto) 7.1 (3-14) % Eos % (Auto) 1.2 L (2-4) % Baso % (Auto) 0.8 (0-2) % Neut # (Auto) 5900 (7485-7429) /uL Lymph # (Auto) 2900 (2275-1716) /uL [place] # (Auto) 700 (0-900) /uL Eos # (Auto) 100 (0-450) /uL Baso # (Auto) 100 (0-100) /uL PT 12.0 (10.1-12.7) SECONDS INR 1.0 (0.9-1.3) APTT 32 (26.4-36.2) SECONDS Sodium 141 (137-145) mmol/L Potassium 4.3 (3.4-5.1) mmol/L Chloride 105 (98-107) mmol/L Carbon Dioxide 32 (22-32) mmol/L BUN 17 (9-20) mg/dL Creatinine 1.15 (0.66-1.25) mg/dL Estimated GFR > 60.0 (>60) mL/min BUN/Creatinine Ratio 14.8 (6-22) Glucose 97 (70-100) mg/dL Calcium 9.6 (8.4-10.2) mg/dL Total Bilirubin 0.3 (0.2-1.3) mg/dL AST 30 (17-59) IU/L ALT 31 (<50) IU/L Alkaline Phosphatase 78 (38-126) U/L Total Protein 7.8 (6.3-8.2) g/dL Albumin 4.6 (3.5-5.0) g/dL Globulin 3.2 (1.7-4.1) g/dL Albumin/Globulin Ratio 1.4 (1.0-2.8) Lipase 124 (23-300) U/L Point of Care Testing Stool Occult Blood Positive Urine Dip Bedside Urine Glucose Negative Bedside Urine Bilirubin - Negative Bedside Urine Ketone - Negative Urine Specific [place] 1.015 Bedside Urine Occult Blood - Negative Bedside Urine pH 7 Bedside Urine Protein - Negative Bedside Urine Urobilinogen - Negative Bedside Urine Nitrite - Negative Bedside Urine Leukocytes - Negative Esterase Point of care testing: Point of Care Testing Stool Occult Blood Positive Urine Dip Bedside Urine Glucose Negative Bedside Urine Bilirubin - Negative Bedside Urine Ketone - Negative Urine Specific [place] 1.015 Bedside Urine Occult Blood - Negative Bedside Urine pH 7 Bedside Urine Protein - Negative Bedside Urine Urobilinogen - Negative Bedside Urine Nitrite - Negative Bedside Urine Leukocytes - Negative Esterase Imaging Data CT scan - abdomen/pelvis: Radiologist's Impression: Mild thickening of the mucosa of the distal sigmoid colon and rectum. This can be associated with early/mild colitis. Mild colonic stool burden. No bowel obstruction MDM Narrative Medical decision making narrative: [facility] the issues that he presents with today. He has generalized abdominal tenderness. His labs are unremarkable however the patient stated that he wanted a CT scan. I discussed with him the risks and benefits of a CT. Informed him that he does have undiagnosed condition that could potentially cause issues such as perforations/obstructions however I also told him that his labs are unremarkable and the last several times he has been here and has had CT scans they did not show any acute issues in we made no changes to any of his medications. Discussed the risks of this to include radiation exposure in potential issues with this. After this discussion the patient st ated that he would still like to have a CT scan. One was ordered and subsequent read shows mild/early colitis in the distal sigmoid colon and rectum. Is very similar to CT scans that he has had prior. I did not discuss his case today with GI as I feel that given his presentation, vital signs, exam, labs, CT scan that it would be unlikely based on prior discussions with them that they would change it if his medications are put him on steroids. I informed him that he needed to contact his GI doctor on Thursday for a follow-up. He was given return precautions. He expressed understanding and agreement. Discharge Plan Departure Patient Disposition: Home Clinical Impression: Crohn's disease, Abdominal pain, Diarrhea Instructions: DI for Crohns Disease Activity Restrictions/Additional Instructions: Your labs and CT scan today are reassuring. I recommend that on Thursday you contact your GI doctor to discuss further workup. Any further pain control will either need to come from your GI doctor or from your primary provider. Return to the emergency department for any new symptoms Prescriptions: No Action lamotrigine 200 mg tablet 200 mg PO DAILY RF: 0 gabapentin 400 mg capsule 400 mg PO TID RF: 0 oxycodone 5 mg tablet 5 mg PO Q6HR PRN (Reason: Pain (Scale Score 7-10)) RF: 0 dextroamphetamine-amphetamine 25 mg capsule,extended release 24hr 25 mg PO QAM RF: 0 bupropion HCl 300 mg tablet extended release 24 hr 300 mg PO DAILY RF: 0 ondansetron 4 mg tablet,disintegrating 4 mg PO Q6H PRN (Reason: nausea and vomiting) Qty: 14 RF: 0 oxycodone 5 mg tablet 5 mg PO Q6H PRN (Reason: pain) Qty: 14 RF: 0
--- NOTE | 2020-08-03 22:43 | DI.CT.S_ITS ---
PROCEDURE: CT ABDOMEN PELVIS W CON INDICATIONS: History of Crohn's disease, generalized abdominal pain, TECHNIQUE: After the administration of intravenous contrast, 5 mm thick sections acquired from the diaphragm to the symphysis. 5 mm coronal and sagittal reformats were acquired. For radiation dose reduction, the following was used: automated exposure control, adjustment of mA and/or kV according to patient size. COMPARISON: [facility], CT, CT ABDOMEN PELVIS W CON, 07/04/2020, 13:47. [facility], CT, CT ABDOMEN PELVIS W CON, 04/04/2020, 11:48. FINDINGS: Image quality: Excellent. ABDOMEN: Lung bases: Lung bases are clear. Heart size is normal. Solid organs: Liver is normal in size and enhancement. Gallbladder is largely collapsed at the time of this study. Biliary system is non dilated. Pancreas enhances normally. Spleen is normal in size and enhancement. No adrenal nodules. Kidneys demonstrate normal size and enhancement, without hydronephrosis. Peritoneum and bowel: Minimal wall thickening can be seen involving the distal colon, which is improved compared to the prior examination. Bowel loops otherwise demonstrate normal wall thickness and caliber. No free fluid or air. A normal appendix is incidentally noted. Nodes and vessels: No retroperitoneal or mesenteric adenopathy by size criteria. Aorta and inferior vena cava are normal in size. Miscellaneous: No ventral hernias. PELVIS: Genitourinary: Bladder wall thickness is normal. Miscellaneous: No inguinal hernias or adenopathy. Bones: No suspicious bony lesions. No vertebral body compression fractures. IMPRESSION: Improving colonic inflammation. No julia, acute abnormality is identified. Incidental note is made of: Normal appendix Note: No significant discrepancy from the preliminary report. Dictated by: Neno Sen M.D. on 08/04/2020 at 7:58 Approved by: Neno Sen M.D. on 08/04/2020 at 8:01
[2020-08-03] MEDS: SODIUM CHLORIDE 0.9% 1,000 ML 1000 ML IV (22:46)
[2020-08-03 23:42] VITALS: BP 133/76; PULSE 69; RESP 16; O2SAT 98
== END 2020-08-03 23:42 | disposition home or self-care (01) ==
PROVIDERS: Emergency Provider Emergency Medicine
DX: K50.90 Crohn's disease, unspecified, without complications (principal); R10.84 Generalized abdominal pain; R19.7 Diarrhea, unspecified
CPT/HCPCS: 36415; 74177; 80053; 81003; 82272; 83690; 85025; 85610; 85730; 96360; 99284; Q9967

== ENCOUNTER 2021-09-25 19:00 | Emergency (ER) | payer OTHER, SELFPAY ==
[2021-09-25 19:04] VITALS: BP 139/89; PULSE 93; RESP 22; TEMP 37.2; O2SAT 99
--- NOTE | 2021-09-25 19:09 | DI.RAD.S_ITS ---
PROCEDURE: XR RIBS RT MIN 3V W CXR 1V INDICATIONS: fall TECHNIQUE: 4 views of the right ribs were acquired, along with a single view chest. COMPARISON: None. FINDINGS: Surgical changes and devices: None. Bones and chest wall: No fractures or dislocations. No suspicious bony lesions. Overlying soft tissues appear unremarkable. Lungs and pleura: No pleural effusions or pneumothorax. Lungs appear clear. Mediastinum: Mediastinal contours appear normal. Heart size is normal. IMPRESSION: No evidence of displaced right rib fracture. No evidence acute pulmonary process. Dictated by: Venkata Roberts M.D. on 09/25/2021 at 19:36 Approved by: Venkata Roberts M.D. on 09/25/2021 at 19:37
--- NOTE | 2021-09-25 19:32 | ED.SKABFB ---
HPI - Skin/Abscess/Foreign Bdy General Chief complaint: Skin/Abscess/Foreign Body Stated complaint: Abcsess on ABD, balance issues, lump on neck Time Seen by Provider: 09/25/21 19:12 Source: patient Mode of arrival: Ambulatory History of Present Illness HPI narrative: Patient is a 26-year-old male who has had multiple abscesses in the past who is here for evaluation of an area on his left lower abdomen that is painful and red. He states that it feels like prior abscess. He has been trying to pop it at home but has been unable to do so. He also states that he has been having some balance issues at home and has fallen a couple times because of this but he feels like this is getting somewhat better. He also feels like there is a lump behind his left ear. Unrelated to his balance issues he fell recently because he slipped on some water that was on the floor and has rib pain because that. Related Data Home Medications Medication Instructions Recorded Confirmed bupropion HCl 300 mg 24 hr tablet, 300 mg PO DAILY 07/04/20 07/04/20 extended release dextroamphetamine-amphetamine ER 25 mg PO QAM 07/04/20 07/04/20 25 mg 24hr capsule,extend release gabapentin 400 mg capsule 400 mg PO TID 07/04/20 07/04/20 lamotrigine 200 mg tablet 200 mg PO DAILY 07/04/20 07/04/20 oxycodone 5 mg tablet 5 mg PO Q6HR PRN 07/04/20 07/04/20 Previous Rx's Medication Instructions Recorded ondansetron 4 mg disintegrating 4 mg PO Q6H PRN #14 tab 07/04/20 tablet oxycodone 5 mg tablet 5 mg PO Q6H PRN #14 tab 07/24/20 sulfamethoxazole 800 1 tab PO BID 5 Days #10 tab 09/25/21 mg-trimethoprim 160 mg tablet (Bactrim DS) Allergies Allergy/AdvReac Type Severity Reaction Status Date / Time hydrocodone [From Vicodin] AdvReac Intermediate Verified 08/03/20 22:11 Review of Systems Review of Systems ROS Unobtainable: All systems reviewed & are unremarkable except as noted in HPI and below Patient History Medical History ADHD Anxiety Crohn's disease Depression Social History Smoking Status: Never smoker Smoking Status: Never smoker tobacco type: vaping Substance Use Type: does not use Exam Initial Vital Signs Initial Vital Signs: Vital Signs Temperature 98.9 F 09/25/21 19:04 Pulse Rate 93 H 09/25/21 19:04 Respiratory Rate 22 09/25/21 19:04 Blood Pressure 139/89 09/25/21 19:04 Pulse Oximetry 99 09/25/21 19:04 Const General: cooperative and comfortable HENMT Head: normal to inspection Ears: TM's normal bilaterally Neck Other: Patient does have a small area full most located behind his left ear. There is no overlying skin changes. Is not fluctuant. Minimally tender to palpation Chest Other: Tenderness to palpation right-sided chest wall Resp Effort & Inspection: normal respiratory effort Cardio Rate: regular rate Skin Other: Patient has a 2 cm x 2 cm area of redness on his left lower abdomen with a large area of induration underlying this and overlying area of redness. Neuro General: patient alert, patient awake, patient oriented x3, gait normal and moves all extremities Cranial Nerves: CN's II-XI intact bilaterally Extrem General: normal to inspection and capillary refill normal Procedures Abscess I/D I&D #1: Site: abdomen Side (if applicable): left Sedation/analgesia: none Local Anesthetic: lidocaine 1% and with bicarb Amount of anesthesia used (mL): 4 Technique: incised with #11 blade Irrigation: No Packing used?: none Course Orders Ordered: ED Orders 09/25/21 19:09 XR ribs RT min 3V w CXR1V Stat Discontinued Medications Lidocaine/Sodium Bicarbonate (Lido 1%/Sod Bicarb 8.4% (10ml) 10 Ml Syringe) 10 ml INJ NOW ONE Stop: 09/25/21 19:34 Last Admin: 09/25/21 19:48 Dose: 10 ml Documented by: BRIANA Trimethoprim/Sulfamethoxazole (Trimeth/Sulfa 160/800 (Ds) Tablet) 1 tab PO NOW ONE Stop: 09/25/21 19:42 Last Admin: 09/25/21 19:48 Dose: 1 tab Documented by: BRIANA Vital Signs Vital signs: Vital Signs - 8 hr 09/25/21 19:51 Temperature 98 F Pulse Rate 94 H Respiratory Rate 12 Blood Pressure 129/71 Pulse Oximetry 97 [facility] - Skin/Abscess/Foreign Bdy Imaging Data Rib x-ray: Radiologist's Impression: [address] [address] XRay Report Signed Patient: Oz Rivera MR#: [id number] : 1995 Acct:[id number] Age/Sex: 26 / M Date of Service: 09/25/21 Loc: ED Accession Number: [id number] ?? Procedure: XR ribs RT min 3V w CXR1V Ordering Provider: Shar Martínez D.O. PROCEDURE:? XR RIBS RT MIN 3V W CXR 1V ? INDICATIONS:? fall ? TECHNIQUE:? 4 views of the right ribs were acquired, along with a single view chest.? ? COMPARISON:? None. ? FINDINGS:? ? Surgical changes and devices:? None.? ? Bones and chest wall:? No fractures or dislocations.? No suspicious bony lesions.? Overlying soft tissues appear unremarkable.? ? Lungs and pleura:? No pleural effusions or pneumothorax.? Lungs appear clear.? ? Mediastinum:? Mediastinal contours appear normal.? Heart size is normal.? ? IMPRESSION:? No evidence of displaced right rib fracture. No evidence acute pulmonary process. ? Dictated by: Venkata Roberts M.D. on 09/25/2021 at 19:36 ? ? Approved by: Venkata Roberts M.D. on 09/25/2021 at 19:37? [facility] Narrative Medical decision making narrative: Bedside ultrasound did show a small abscess on his abdomen. This was drained as described above. Rib x-ray showed no signs of fractures. There is a area of fullness behind his left ear but it does not appear to be an abscess. Most likely lymph node. Given the surrounding area of erythema and the fact that the patient is on Remicade for his Crohn's disease will start him on antibiotics. He is given a 1st dose of antibiotics here in the ER no sent home with prescription for the remainder. He is given care instructions and return precautions. He expressed understanding and agreement. Discharge Plan Departure Patient Disposition: Home Clinical Impression: Rib pain on right side, Abscess Instructions: DI for Incision and Drainage of a Skin Abscess Activity Restrictions/Additional Instructions: Expect some drainage from the area that we incised today. You can shower like normal. Take the antibiotics as directed. Return to the emergency department for any new or worsening symptoms. Prescriptions: New sulfamethoxazole-trimethoprim [Bactrim DS] 800-160 mg tablet 1 tab PO BID 5 Days Qty: 10 0RF No Action lamotrigine 200 mg tablet 200 mg PO DAILY 0RF Label Comments: take 1 tablet by mouth once daily gabapentin 400 mg capsule 400 mg PO TID 0RF oxycodone 5 mg tablet 5 mg PO Q6HR PRN (Reason: Pain (Scale Score 7-10)) 0RF Label Comments: take 1 tablet by mouth every 6 hours if needed for pain Rx Instructions: 1 day script 07/03/20 dextroamphetamine-amphetamine 25 mg capsule,extended release 24hr 25 mg PO QAM 0RF Label Comments: take 1 capsule by mouth once daily bupropion HCl 300 mg tablet extended release 24 hr 300 mg PO DAILY 0RF ondansetron 4 mg tablet,disintegrating 4 mg PO Q6H PRN (Reason: nausea and vomiting) Qty: 14 0RF oxycodone 5 mg tablet 5 mg PO Q6H PRN (Reason: pain) Qty: 14 0RF
[2021-09-25] MEDS: TRIMETH/SULFA 160/800 (DS) TABLET 1 TAB PO (19:48)
[2021-09-25] MEDS: LIDO 1%/SOD BICARB 8.4% (10ML) 10 ML SYRINGE INJ (19:48)
[2021-09-25 19:51] VITALS: BP 129/71; PULSE 94; RESP 12; TEMP 36.6; O2SAT 97
== END 2021-09-25 20:07 | disposition home or self-care (01) ==
PROVIDERS: Emergency Provider Emergency Medicine
DX: L02.211 Cutaneous abscess of abdominal wall (principal); R07.81 Pleurodynia
CPT/HCPCS: 10060; 71101; 99283

== ENCOUNTER 2021-10-20 20:34 | Emergency (ER) | payer OTHER, MEDICAID, SELFPAY ==
[2021-10-20 20:43] VITALS: BP 159/87; PULSE 94; RESP 16; TEMP 36.8; O2SAT 98; BMI 34.4
--- NOTE | 2021-10-20 21:01 | ED.WOUNDLAC ---
HPI - Wound/Laceration General Chief Complaint: Wound/Laceration Stated Complaint: MRSA infection front left chest Time Seen by Provider: 10/20/21 20:55 Source: patient Mode of arrival: Ambulatory History of Present Illness HPI narrative: Patient is a 26-year-old male the history of Crohn's disease and also multiple abscesses requiring incision and drainage. He also has tested positive for MRSA in the past who is here for evaluation of a couple days of a red area on his left chest that has been draining a small amount of purulent material and has surrounding redness. No fevers. Related Data Home Medications Medication Instructions Recorded Confirmed bupropion HCl 300 mg 24 hr tablet, 300 mg PO DAILY 07/04/20 07/04/20 extended release dextroamphetamine-amphetamine ER 25 mg PO QAM 07/04/20 07/04/20 25 mg 24hr capsule,extend release gabapentin 400 mg capsule 400 mg PO TID 07/04/20 07/04/20 lamotrigine 200 mg tablet 200 mg PO DAILY 07/04/20 07/04/20 oxycodone 5 mg tablet 5 mg PO Q6HR PRN 07/04/20 07/04/20 Previous Rx's Medication Instructions Recorded ondansetron 4 mg disintegrating 4 mg PO Q6H PRN #14 tab 07/04/20 tablet oxycodone 5 mg tablet 5 mg PO Q6H PRN #14 tab 07/24/20 Allergies Allergy/AdvReac Type Severity Reaction Status Date / Time hydrocodone [From Vicodin] AdvReac Intermediate Verified 10/20/21 20:46 Review of Systems Constitutional Constitutional: Denies fever(s) Integumentary/Breasts Skin/Breast: Reports system reviewed and no additional complaints, except as documented and Reports as per HPI Hematologic/Lymphatic On Anticoagulants: No Allergic/Immunologic Allergic/Immunologic: Reports system reviewed and no additional complaints, except as documented Patient History Medical History ADHD Anxiety Crohn's disease Depression Social History Smoking Status: Current every day smoker Smoking Status: Current every day smoker tobacco type: vaping alcohol intake frequency: 0-2 drinks per day Substance Use Type: does not use Exam Initial Vital Signs Initial Vital Signs: Vital Signs Temperature 98.3 F 10/20/21 20:43 Pulse Rate 94 H 10/20/21 20:43 Respiratory Rate 16 10/20/21 20:43 Blood Pressure 159/87 H 10/20/21 20:43 Pulse Oximetry 98 10/20/21 20:43 HENMT Head: normal to inspection and normocephalic Resp Effort & Inspection: normal respiratory effort Skin Other: There is a 2 cm x 3 cm area of induration on his left pectoralis region. There is a 1 cm by 1 cm area of fluctuance in the center this with a raise pustule. There is surrounding erythema. Neuro General: patient alert, patient awake and moves all extremities Extrem General: normal to inspection and capillary refill normal Procedures Abscess I/D I&D #1: Site: chest Side (if applicable): left Local Anesthetic: lidocaine 1% and with bicarb Amount of anesthesia used (mL): 2 Technique: incised with #11 blade Irrigation: No Packing used?: none Course Orders Ordered: Discontinued Medications Lidocaine/Sodium Bicarbonate (L[place] 1%/Sod Bicarb 8.4% (10ml) 10 Ml Syringe) 10 ml INJ NOW ONE Stop: 10/20/21 21:03 Last Admin: 10/20/21 21:27 Dose: 10 ml Documented by: BRANDYN Vital Signs Vital signs: Vital Signs - 8 hr 10/20/21 20:43 Temperature 98.3 F Pulse Rate 94 H Respiratory Rate 16 Blood Pressure 159/87 H Pulse Oximetry 98 MDM - Wound/Laceration MDM Narrative Medical decision making narrative: Physical exam is consistent with a abscess and a surrounding area of erythema. Was incised as described above. Patient already has a prescription for Bactrim and Keflex at home. We discussed the use of these medications to treat his current issue. He was given care instructions and return precautions. He expressed understanding and agreement. Discharge Plan Departure Patient Disposition: Home Clinical Impression: Abscess Instructions: DI for Incision and Drainage of a Skin Abscess Activity Restrictions/Additional Instructions: Keep the area clean with soap and water. Keep a bandage over the area. Expect some drainage. I recommend that you fill the prescription that you have for Bactrim and start taking it as directed. Return to the emergency department for new or worsening symptoms. Prescriptions: No Action lamotrigine 200 mg tablet 200 mg PO DAILY 0RF Label Comments: take 1 tablet by mouth once daily gabapentin 400 mg capsule 400 mg PO TID 0RF oxycodone 5 mg tablet 5 mg PO Q6HR PRN (Reason: Pain (Scale Score 7-10)) 0RF Label Comments: take 1 tablet by mouth every 6 hours if needed for pain Rx Instructions: 1 day script 07/03/20 dextroamphetamine-amphetamine 25 mg capsule,extended release 24hr 25 mg PO QAM 0RF Label Comments: take 1 capsule by mouth once daily bupropion HCl 300 mg tablet extended release 24 hr 300 mg PO DAILY 0RF ondansetron 4 mg tablet,disintegrating 4 mg PO Q6H PRN (Reason: nausea and vomiting) Qty: 14 0RF oxycodone 5 mg tablet 5 mg PO Q6H PRN (Reason: pain) Qty: 14 0RF
[2021-10-20] MEDS: LIDO 1%/SOD BICARB 8.4% (10ML) 10 ML SYRINGE INJ (21:27)
== END 2021-10-20 21:32 | disposition home or self-care (01) ==
PROVIDERS: Emergency Provider Emergency Medicine
DX: L02.213 Cutaneous abscess of chest wall (principal)
CPT/HCPCS: 10060; 99282; 99283

== ENCOUNTER 2021-12-05 23:53 | Emergency (ER) | payer OTHER, MEDICAID, SELFPAY ==
[2021-12-06 00:04] VITALS: BP 164/88; PULSE 97; RESP 20; TEMP 36.6; O2SAT 98; BMI 33.0
--- NOTE | 2021-12-06 04:00 | PC.NURSE ---
recently seen at outside facility with same c/o, right elbow red and swollen
--- NOTE | 2021-12-06 04:06 | ED.EXTPRO ---
HPI - Extremity Problem General Chief complaint: Extremity Problem,Nontraumatic Stated complaint: RIGHT ELBOW PAIN Time Seen by Provider: 12/06/21 03:46 Source: patient Mode of arrival: Ambulatory History of Present Illness HPI Narrative: patient complains of right elbow pain and swelling for the past 4 days. Patient was seen at [facility] Emergency Department on the of this month. Prescribed doxycycline. He has had 3 tablets so far. History of staph infection in the past. History of skin abscesses. Patient is able to flex and extend at the elbow and supinate pronate. No fever. Review of prescription drug report shows patient does get regular dextroamphetamine /amphetamine by provider regularly. Same provider. Also gets intermittent oxycodone/Percocets as well. Related Data Home Medications Medication Instructions Recorded Confirmed bupropion HCl 300 mg 24 hr tablet, 300 mg PO DAILY 07/04/20 07/04/20 extended release dextroamphetamine-amphetamine ER 25 mg PO QAM 07/04/20 07/04/20 25 mg 24hr capsule,extend release gabapentin 400 mg capsule 400 mg PO TID 07/04/20 07/04/20 lamotrigine 200 mg tablet 200 mg PO DAILY 07/04/20 07/04/20 oxycodone 5 mg tablet 5 mg PO Q6HR PRN Pain (Scale Score 07/04/20 07/04/20 7-10) Previous Rx's Medication Instructions Recorded ondansetron 4 mg disintegrating 4 mg PO Q6H PRN nausea and 07/04/20 tablet vomiting #14 tabs oxycodone 5 mg tablet 5 mg PO Q6H PRN pain #14 tabs 07/24/20 Allergies Allergy/AdvReac Type Severity Reaction Status Date / Time hydrocodone [From Vicodin] AdvReac Intermediate Verified 10/20/21 20:46 Review of Systems Review of Systems Narrative: GENERAL: Denies chills, fatigue, malaise, fever, sweats. HEENT: Denies sinus pain, ear pain, sore throat RESPIRATORY: Denies dyspnea, cough CARDIOVASCULAR: Denies chest pain, palpitations GASTROINTESTINAL: Denies nausea, vomiting, abdominal pain : Denies dysuria, frequency, hematuria MUSCULOSKELETAL: denies muscle or bony pain SKIN: Denies rash, skin lesions, positive for erythema/edema NEUROLOGIC: Denies weakness, numbness ROS Unobtainable: All systems reviewed & are unremarkable except as noted in HPI and below Patient History Medical History ADHD Anxiety Crohn's disease Depression Social History Smoking Status: Current every day smoker Smoking Status: Current every day smoker tobacco type: vaping alcohol intake frequency: 0-2 drinks per day Substance Use Type: marijuana Exam Narrative Exam Narrative: GENERAL: in no distress, not toxic not dyspneic HEAD: Normocephalic. EYES: Pupils equal round No scleral icterus. EXTREMITIES: No gross deformities. examination right upper extremity elbow to finger tips exposed as well as elbow to shoulder exposed. There is moderate erythema and the olecranon surface of the elbow. It is noncircumferential. It is round shaped and 10 cm in diameter. There is central induration with surrounding erythema but no fluctuance. No palpable abscess. Surgical pen used to outline edges. Aspiration attempt with 18 gauge needle was used but no fluid return or pus. Skin was prepped with chlorhexidine swab. 1% lidocaine with epinephrine used to infiltrate the skin in indurated area. 18 gauge needle used to aspirate attempt but no fluid current did not enter into the elbow space. Patient does have near full flexion of the elbow. Is able to fully extend. Is able to supinate and pronate as well at the elbow. NEURO: AOx4. SKIN: Warm and dry PSYCH: Not anxious, is cooperative Initial Vital Signs Initial Vital Signs: Vital Signs Temperature 97.9 F 12/06/21 00:04 Pulse Rate 97 H 12/06/21 00:04 Respiratory Rate 20 12/06/21 00:04 Blood Pressure 164/88 H 12/06/21 00:04 Pulse Oximetry 98 12/06/21 00:04 Oxygen Delivery Method 12/06/21 00:04 Course Course Course Narrative: No new issues during course of stay Orders Ordered: Discontinued Medications Oxycodone/Acetaminophen (Oxycodone/Apap 5/325 Prepack) 1 bottle MISC SEEINSTR ONE Stop: 12/06/21 04:05 Last Admin: 12/06/21 04:13 Dose: 1 bottle Documented By: MAE Reevaluation(s) Reevaluation #1: patient tolerated attempt for needle aspiration of joint without difficulty. Return precautions reviewed with him Vital Signs Vital signs: Vital Signs - 8 hr 12/06/21 00:04 Temperature 97.9 F Pulse Rate 97 H Respiratory Rate 20 Blood Pressure 164/88 H Pulse Oximetry 98 Oxygen Delivery Method Room Air MDM - Extremity (Nontraumatic) Differential Diagnosis Differential diagnosis: Likely cellulitis and other ( Abscess) MDM Narrative Medical decision making narrative: appropriate for discharge home. Exam reassuring. Return precautions reviewed patient. Patient does have primary care. Patient already on antibiotics from previous hospital visit. no blood work or imaging indicated. Clinically not septic joint. Discharge Plan Departure Patient Disposition: Home Clinical Impression: Cellulitis Instructions: DI for Cellulitis -- Adult Activity Restrictions/Additional Instructions: See family doctor next week for re-evaluation of your skin infection/cellulitis. No driving or operating machinery when taking pain medication prescribed to you. Be sure to complete antibiotics that was given to you from previous facility. Return if worse or for any questions or concerns Prescriptions: No Action lamotrigine 200 mg tablet 200 mg PO DAILY Label Comments: take 1 tablet by mouth once daily gabapentin 400 mg capsule 400 mg PO TID oxycodone 5 mg tablet 5 mg PO Q6HR PRN (Reason: Pain (Scale Score 7-10)) Label Comments: take 1 tablet by mouth every 6 hours if needed for pain Rx Instructions: 1 day script 07/03/20 dextroamphetamine-amphetamine 25 mg capsule,extended release 24hr 25 mg PO QAM Label Comments: take 1 capsule by mouth once daily bupropion HCl 300 mg tablet extended release 24 hr 300 mg PO DAILY ondansetron 4 mg tablet,disintegrating 4 mg PO Q6H PRN (Reason: nausea and vomiting) Qty: 14 0RF oxycodone 5 mg tablet 5 mg PO Q6H PRN (Reason: pain) Qty: 14 0RF Visit Report Forms: Patient Portal/API
[2021-12-06] MEDS: OXYCODONE/APAP 5/325 PREPACK 1 BOTTLE MISC (04:13)
== END 2021-12-06 04:17 | disposition home or self-care (01) ==
PROVIDERS: Emergency Provider Emergency Medicine
DX: L03.113 Cellulitis of right upper limb (principal)
CPT/HCPCS: 99281; 99283